=== PATIENT | male | born 1940 | race Caucasian/White ===

== ENCOUNTER 2016-09-17 13:46 | Inpatient (IN) ==
[2016-09-17 17:01] LABS: Basophils % 0.4 %; Eosinophils # 0.3 K/mcL (0.0-0.6); Eosinophils % 3.5 %; Hematocrit 44.1 % (37.5-50.1); Hemoglobin 14.7 g/dL (12.9-16.9); Immature Granulocytes % 0.4 % (0-4); Lymphocytes # 1.8 K/mcL (0.6-4.6); Lymphocytes % 22.5 %; Mean Corpuscular HGB Conc 33.3 g/dL (31.6-35.5); Mean Corpuscular Hemoglobin 31.5 pg (28.0-33.3); Mean Corpuscular Volume 94.6 fL (83.0-100.0); Mean Platelet Volume 10.1 fL (9.4-12.4); Monocytes % 12.5 %; Neutrophils # 4.9 K/mcL (1.6-8.9); Platelet Count 160 K/mcL (140-400); Red Blood Count 4.66 M/mcL (4.19-5.50); Red Cell Distribution Width 13.5 % (11.5-14.5); Segmented Neutrophils % 60.7 %
[2016-09-17 17:11] LABS: Prothrombin Time 44.7 Seconds (9.4-12.1)
[2016-09-17 17:15] LABS: BUN/Creatinine Ratio 16 (6-26); Blood Urea Nitrogen 13 mg/dL (8-26); Calcium 8.8 mg/dL (8.6-10.8); Carbon Dioxide 26 mEq/L (19-29); Chloride 108 mEq/L (98-109); Glucose 92 mg/dL (70-99); Osmolality,Calculated 290 (280-300); Potassium 4.7 mEq/L (3.5-4.5); Sodium 140 mEq/L (136-145); eGFR For African Americans > 60 (> 60); eGFR For Non-African Americans > 60 (> 60)
--- NOTE | 2016-09-17 17:34 | Emergency Department Note ---
Disposition Clinical Impression: DVT, popliteal, acute Qualifiers: Laterality: right Qualified Code(s): I82.431 - Acute embolism and thrombosis of right popliteal vein Disposition: Admitted As Inpatient Condition: Good Referrals: Misha Jensen Jr, MD [Primary Care Provider] - Forms: ED Satisfaction Letter Lower Extremity Injury HPI - General Chief Complaint: ED Extremity Injury, Lower Stated Complaint: Injured right leg Time Seen by Provider: 09/17/16 15:43 Source: patient Limitations: no limitations Nursing Notes Reviewed: Yes Vital Signs Reviewed: Yes - History of Present Illness Pt Subjective Complaint: leg injury Onset (ago): day(s) (5) Mechanism of Injury: blunt Context: direct blow Place: other (hit leg on a wall then flew 9 hour flight from [place]) Improves with: immobilization Worsens with: weight bearing Associated symptoms: Reports: ambulatory - Related Data Home Medications Medication Instructions Recorded Confirmed Albuterol Sulfate [Proventil Hfa] 6.7 gm IH QID PRN 06/28/15 02/20/16 Fluticasone/Salmeterol [Advair 1 each IH BID 06/28/15 02/20/16 500-50 Diskus] Gabapentin [Neurontin] 300 mg PO TID 06/28/15 02/20/16 Montelukast [Singulair] 10 mg PO HS 06/28/15 02/20/16 Previous Rx's Medication Instructions Recorded Diltiazem CD (24hr) [Cardizem CD] 120 mg PO DAILY #30 cap.er.24h 06/29/15 Propafenone [Rhythmol] 150 mg PO Q8HR #90 tablet 08/16/15 OxyCODONE/APAP 5/325 [Percocet 1 each PO Q4H PRN #15 tablet 02/20/16 5/325 MG] Phenazopyridine [Pyridium] 200 mg PO TID PRN #30 tablet 02/20/16 Allergies Allergy/AdvReac Type Severity Reaction Status Date / Time Penicillins [PCN] AdvReac Gastrointestinal Verified 02/20/16 07:14 Upset All systems ED: reviewed and negative except as stated. Constitutional: Denies: fever, chills, weakness Cardiovascular: Denies: chest pain, palpitations, dyspnea on exertion Past Medical History - Past Medical History Source: patient, old records reviewed, nursing notes reviewed Medical history: Reports: arthritis, asthma, atrial fibrillation, CHF, COPD, DVT , GI bleed, myocardial infarction, thyroid disease, TIA Surgical history: Reports: cholecystectomy, other Psychiatric history: Reports: no psych history - Social History Smoking Status: Former smoker Smokeless Tobacco Status: No Alcohol use: Reports: occasionally Drug use: Reports: none Physical Exam - General Limitations: no limitations General appearance: alert - Head Head exam: atraumatic, normocephalic, normal inspection - Eye Eye exam: Present: normal appearance, PERRL, EOMI - Expanded Eye Exam Pupils: Left: reactive - ENT ENT exam: normal exam, normal oropharynx, mucous membranes moist - Expanded ENT Exam External ear exam: Present: normal external inspection Mouth exam: Present: normal external inspection Teeth exam: Present: normal inspection Throat exam: Present: normal inspection - Neck Neck exam: Present: normal inspection, full ROM, trachea midline - Chest Chest inspection: Present: normal inspection, symmetric chest wall rise - Respiratory Respiratory exam: Present: normal lung sounds bilaterally - Cardiovascular Cardiovascular exam: Present: regular rate, normal rhythm, normal heart sounds - Abdominal Exam Abdominal exam: Present: soft, Non-Tender. Absent: tenderness, distention, guarding, rebound, rigidity - Extremities Exam Extremities exam: Present: normal inspection, full ROM. Absent: tenderness, pedal edema - Expanded Upper Extremity Exam Shoulder exam: Present: normal inspection, full ROM Arm exam: Present: normal inspection, full ROM Elbow exam: Present: normal inspection, full ROM Forearm/Wrist exam: Present: normal inspection, full ROM Hand exam: Present: normal inspection, full ROM Vascular exam: Normal: capillary refill, radial pulse - Expanded Lower Extremity Exam Hip/Pelvis exam: Present: normal inspection, full ROM Upper leg exam: Present: normal inspection, full ROM Knee exam: Present: normal inspection, full ROM Lower leg exam: Present: other (right leg 3+ pitting edema, markedly more swollen than the left) Ankle exam: Present: normal inspection, full ROM Foot/toe exam: Present: normal inspection, full ROM Neurovascular/Tendon exam: Absent: motor deficit, sensory deficit, tendon deficit - Back Exam Back exam: Present: normal inspection, full ROM. Absent: tenderness - Neurological Exam Neurological exam: Present: alert, oriented X3 - Expanded Neurological Exam Patient oriented to: Present: person, place, time Coma Scale Eye Opening: Spontaneous Coma Scale Motor Response: Obeys Commands Coma Scale Verbal Response: Oriented Coma Scale Total: 15 - Psychiatric Psychiatric exam: Present: normal affect, normal mood - Skin Skin exam: Present: warm, dry, intact, normal color Course - Consultations Consultation #1: Dr. Darren soria coumadin, start heparin gtt Time: 17:55 Vital Signs Temperature 98.1 F 09/17/16 14:06 Pulse Rate 72 09/17/16 14:06 Respiratory Rate 16 09/17/16 14:06 Blood Pressure 139/73 09/17/16 14:06 O2 Sat by Pulse Oximetry 94 L 09/17/16 14:06 Temperature 98.1 F 09/17/16 14:06 Pulse Rate 72 09/17/16 16:10 Respiratory Rate 16 09/17/16 16:10 Blood Pressure 139/73 09/17/16 16:10 O2 Sat by Pulse Oximetry 94 L 09/17/16 16:10 Oxygen Delivery Oxygen Delivery Room Air Extremity Injury, Lower - Differential Diagnosis Likely: sprain/strain, acute internal derangement of knee, fracture, laceration - Medical Records Medical records reviewed: Yes I reviewed the patient's medical records. - Lab Data Lab results reviewed: Yes I reviewed the patient's lab results. Result diagrams: 09/17/16 16:49 09/17/16 16:49 Lab Results 09/17/16 09/17/16 09/17/16 Range/Units 16:49 16:49 16:49 WBC 8.0 (4.3-11.1) K/mcL RBC 4.66 (4.19-5.50) M/mcL Hgb 14.7 (12.9-16.9) g/dL Hct 44.1 (37.5-50.1) % MCV 94.6 (83.0-100.0) fL MCH 31.5 (28.0-33.3) pg MCHC 33.3 (31.6-35.5) g/dL RDW 13.5 (11.5-14.5) % Plt Count 160 (140-400) K/mcL MPV 10.1 (9.4-12.4) fL Immature Gran % 0.4 (0-4) % Seg Neutrophils % 60.7 % Lymphocytes % 22.5 % Monocytes % 12.5 % Eosinophils % 3.5 % Basophils % 0.4 % Neutrophils # 4.9 (1.6-8.9) K/mcL Lymphocytes # 1.8 (0.6-4.6) K/mcL Monocytes # 1.0 (0.0-1.3) K/mcL Eosinophils # 0.3 (0.0-0.6) K/mcL Basophils # 0.0 (0.0-0.2) K/mcL PT 44.7 H* (9.4-12.1) Seconds INR 4.0 Sodium 140 (136-145) mEq/L Potassium 4.7 H (3.5-4.5) mEq/L Chloride 108 (98-109) mEq/L Carbon Dioxide 26 (19-29) mEq/L BUN 13 (8-26) mg/dL Creatinine 0.82 (0.72-1.25) mg/dL Est GFR ( Amer) > 60 (> 60) Est GFR (Non-Af Amer) > 60 (> 60) BUN/Creatinine Ratio 16 (6-26) Glucose 92 (70-99) mg/dL Calculated Osmolality 290 (280-300) Calcium 8.8 (8.6-10.8) mg/dL - Radiology Data Radiology results reviewed: Yes I reviewed the patient's radiology results. Critical Care Time Critical Care Time: Yes Total Critical Care Time: 35 Attestation: Critical care performed: Time is exclusive of separately billable procedures. Time includes: direct patient care, patient reassessment, coordination of patient care, interpretation of data (laboratory data, radiology data, and respiratory data), review of patient's medical records, medical consultation and documentation of patient care. Procedures included in critical care time: Procedures excluded from critical care time:
--- NOTE | 2016-09-17 17:44 | Venous Imaging Report ---
LE Venous Duplex Patient Name:Keon Persaud Order Number:[id number] Procedure Date:09/17/2016 Date:1940ge:75 yrs Gender:Male Location:[facility] ED Room #: ER22 Supervisor Cell Room:Marita Marvin RDCS Referring MD:Montez Cameron MD Reading MD:Jimi Paredes MD Primary Indications:Swelling of limb Secondary Indications: Risk Factors Yes/No Hx of DVT Yes Anticoagulants Yes Impressions: Acute deep venous thrombosis is present in the right popliteal and gastrocnemius veins. Normal right lower extremity superficial venous exam. Normal contralateral common femoral vein. Recommendations: Test completed on 09/17/2016 at 5:05:00 pm. Critical findings reported to Dr Cameron in person at 5:09:00 pm on 09/17/2016 by Marita Marvin RDCS. Findings Venous Duplex Results: Right: Venous imaging of the lower extremity reveals full patency and normal vessel compressibility of the right distal iliac, right common femoral, right superficial femoral, right posterior tibial, right peroneal, right great saphenous and right lesser saphenous. Doppler signals in the evaluated veins were normal. There is an acute partially occlusive thrombus seen in the right popliteal. It demonstrates a partially compressible vein. Flow was continuous and it did not augment. There is an acute partially occlusive thrombus seen in the right mid gastrocnemius. It demonstrates a partially compressible vein. Flow was continuous and it did not augment. Prior Study: No prior study available for comparison. Lower Extremity Venous Duplex Side Vein Compress Spontaneous Flow Augment Diameter (cm) Depth (cm) Right Distal Iliac Normal Yes Phasic Yes Right Common Femoral Normal Yes Phasic Yes Right Superficial Femoral Normal Yes Phasic Yes Right Popliteal Partial no Continuous no Right Posterior Tibial Normal Yes Phasic Yes Right Peroneal Normal Yes Phasic Yes Right Gastrocnemius Partial no Continuous no Right Great Saphenous Normal Yes Phasic Yes Right Lesser Saphenous Normal Yes Phasic Yes Updated by Jimi Paredes MD on 09/17/2016 5:33:43 PM electronically signed on 09/17/2016 5:39:48 PM with status of Final
[2016-09-17] MEDS ORDERED: *HR* Heparin 5,000 UNIT/ML VIAL IVP PRN ×2 (17:56)
[2016-09-17] MEDS ORDERED: *HR* Heparin 5,000 UNIT/ML VIAL IVP ONE (17:56)
[2016-09-17] MEDS ORDERED: *HR* OxyCODONE/APAP 5/325 TABLET PO ONE (17:56)
[2016-09-17] MEDS: Heparin 25,000 UNIT/500 ML D5W 25,000 UNIT/500 ML MLS IVC SCH (18:44)
--- NOTE | 2016-09-17 19:56 | Internal Med History&Physical ---
Date of Encounter: 09/17/16 Time of Encounter: 19:51 Assessment and Plan (1) DVT, popliteal, acute Current visit: Yes Status: Acute Patient with history of DVT, admitted due to an acute deep venous thrombosis on his right lower extremity. The patient last on chronic anticoagulation with Coumadin and INR 4.0. At this point, we will continue with heparin drip and monitor his coagulation profile accordingly. Additionally, would monitor his hemoglobin and platelet count. GI prophylaxis. The patient does not need oxygen supplementation at this point, we will continue monitoring his oxygen saturation. Evaluation by hematology has been requested by the emergency department team, we will follow recommendations. She is at high risk for developing complications such as pulmonary embolism. Additionally, due to anticoagulation with heparin drip needs monitoring of his coagulation profile. The plan of care was discussed in detail with the patient and his , they expressed understanding. Qualifiers: Laterality: right Qualified Code(s): I82.431 - Acute embolism and thrombosis of right popliteal vein (2) COPD (chronic obstructive pulmonary disease) Current visit: Yes Status: Acute Not in exacerbation. Qualifiers: COPD type: unspecified COPD Qualified Code(s): J44.9 - Chronic obstructive pulmonary disease, unspecified (3) Atrial fibrillation Current visit: No Status: Acute Ventricular rate under control. Continue with rate control medications. Anticoagulation with heparin drip at this point. Qualifiers: Atrial fibrillation type: paroxysmal Qualified Code(s): I48.0 - Paroxysmal atrial fibrillation (4) CHF (congestive heart failure) Current visit: Yes Status: Acute Qualifiers: Congestive heart failure type: unspecified congestive heart failure type Congestive heart failure chronicity: chronic Qualified Code(s): I50.9 - Heart failure, unspecified Internal Medicine - H&P: HPI Chief complaint: right leg swelling Admitted From: Emergency Dept Plans for Post Hospital Care: Home History of present illness: Mr. 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 The patient presented to our emergency department complaining of progressive right lower extremity swelling and tenderness which is started 5 days ago. The patient states that he was in [place] on vacation and had an injury in his right lower extremity. He flew back to [place] and his right lower extremity had progressively swollen and was tender with significant pain upon palpation. He denies fever, shortness of breath, cough, hemoptysis, melena. The patient presented to our emergency department and upon presentation his blood pressure was 139/73, heart rate was 72/m, but the other rate was 16 per minute, oxygen saturation was 96%. He underwent a duplex of the right lower extremity which revealed a right popliteal aggressive thrombosis along with a right thrombosed. Initial blood work was significant for a hemoglobin of 14.7, platelet count was 160,000. Sodium was 140, potassium 4.7, BUN 13, creatinine 0.82, glucose 92. The emergency department team discussed the case with our shipwright, who recommended initiation of heparin drip. The patient has been admitted for further management and workup. Past Med Surg Social Fam HX - Past Medical History Medical history: arthritis, asthma, atrial fibrillation, CHF, COPD, DVT, GI bleed, myocardial infarction, thyroid disease, TIA Psychiatric history: no psych history - Past Surgical History Surgical History: cholecystectomy, other - Social History Smoking Status: Former smoker Smokeless Tobacco Status: No Alcohol use: occasionally Drug use: none - Family History Mother Adopted: No Hx Family Cancer: No (PANCREATIC) Father Adopted: No Hx Family Cancer: Yes (JAW, COLON) Internal Medicine - H&P: Meds Albuterol Sulfate [Proventil Hfa] 2 puff IH Q4-6H PRN 06/28/15 [History] Fluticasone/Salmeterol [Advair 500-50 Diskus] 1 each IH BID 06/28/15 [History] Gabapentin [Neurontin] 300 mg PO TID 06/28/15 [History] Montelukast [Singulair] 10 mg PO HS 06/28/15 [History] Diltiazem CD (24hr) [Cardizem CD] 120 mg PO DAILY #30 cap.er.24h 06/29/15 [Rx] Propafenone [Rhythmol] 150 mg PO Q8HR #90 tablet 08/16/15 [Rx] Cholestyramine 4 gm PO DAILY 09/17/16 [History] Fluticasone Propionate Nasal [Flonase] 50 mcg NS BID 09/17/16 [History] Warfarin [Coumadin] 5 mg PO TUFR 09/17/16 [History] Warfarin [Coumadin] 7.5 mg PO SUMOWETHSA 09/17/16 [History] Allergies Penicillins [PCN] Adverse Reaction (Verified 02/20/16 07:14) Gastrointestinal Upset All Systems PM: A 10-system review of systems was performed and is negative for pertinent findings except as documented above in the HPI. - Constitutional Constitutional: no chills, no fever(s), no night sweats - EENT Eyes: no change in vision, no discharge, no pain, no photophobia Ears: no ear discharge, no ear pain, no tinnitus Nose, mouth and throat: no dysphagia, no nasal discharge, no neck pain, no sore throat - Cardiovascular Cardiovascular ROS IM: no chest pain, no diaphoresis, no dyspnea, no lightheadedness, no palpitations, no syncope - Respiratory Respiratory: no cough, no dyspnea, no wheezing, no excessive phlegm production - Gastrointestinal Gastrointestinal: no abdominal pain, no diarrhea, no hematemesis, no hematochezia, no melena, no nausea, no vomiting - Musculoskeletal Musculoskeletal ROS IM: as per HPI, no numbness, no tingling - Integumentary Integumentary IM: as per HPI, erythema, no rash, no unusual bruising - Neurological Neurological ROS: no confusion, no convulsions, no focal weakness, no numbness, no tingling, no tremor(s) - Hematologic/Lymphatic Hematologic/Lymphatic: no easy bruising - Constitutional Vitals: Temp Pulse Resp BP Pulse Ox 98.1 F 72 14 118/68 97 09/17/16 14:06 09/17/16 18:30 09/17/16 18:30 09/17/16 18:30 09/17/16 18:30 General appearance: Present: cooperative, A&O X 3, pleasant, no acute distress - Head Head exam: Present: atraumatic, normocephalic - Eye Eye exam: Present: PERRL, conjuntiva pink, sclera anicteric Pupils: Present: PERRL - Neck Neck exam general surgery: Present: supple, trachea midline. Absent: lymphadenopathy - Respiratory Respiratory exam: Present: CTAB. Absent: accessory muscle use, rales, rhonchi, wheezes - Cardiovascular Cardiovascular exam: Present: RRR, +S1, +S2. Absent: diastolic murmur, gallop, rubs, systolic murmur - GI/Abdominal GI/Abdominal exam: Present: normal bowel sounds, soft, no peritoneal signs. Absent: distended, tenderness - Extremities Exam Extremities exam: Present: normal capillary refill, tenderness, warm, radial pulses palpable and symetrical. Absent: calf tenderness, cyanotic, pedal edema Additional comments: right leg 3+ pitting edema, markedly more swollen than the left, preserved distal pulses on both lower extremities. - Neurological Exam Neurological exam: Present: CN II-XII intact, oriented X3, no focal deficits. Absent: pronater drift, facial droop, speech deficit - Skin Skin exam: Present: dry, intact Internal Med - H&P Results - Labs CBC & Chem 7: 09/17/16 16:49 09/17/16 16:49
[2016-09-17] MEDS ORDERED: Naloxone 0.4 MG/ML INJ IVP PRN (20:03)
[2016-09-17] MEDS ORDERED: Ondansetron ODT 4 MG TAB.RAPDIS SL PRN (20:03)
[2016-09-17] MEDS ORDERED: Acetaminophen 325 MG TABLET PO PRN (20:03)
[2016-09-17 20:39] LABS: Activated Partial Thrombo Time 42.1 Seconds (26.0-36.0)
[2016-09-17] MEDS: Budesonide/Formoterol 160/4.5 MDI IH SCH (20:53)
[2016-09-17] MEDS: Gabapentin 300 MG CAPSULE PO SCH (23:24)
[2016-09-17] MEDS: Fluticasone Propionate Nasal 50 MCG/SPRAY BOTTLE NS SCH (23:24)
[2016-09-18 03:21] LABS: Basophils % 0.6 %; Eosinophils # 0.4 K/mcL (0.0-0.6); Eosinophils % 5.4 %; Hematocrit 41.9 % (37.5-50.1); Hemoglobin 13.9 g/dL (12.9-16.9); Immature Granulocytes % 0.3 % (0-4); Immature Platelets 5.7 % (1.1-6.1); Lymphocytes # 2.2 K/mcL (0.6-4.6); Lymphocytes % 30.6 %; Mean Corpuscular HGB Conc 33.2 g/dL (31.6-35.5); Mean Corpuscular Hemoglobin 31.6 pg (28.0-33.3); Mean Corpuscular Volume 95.2 fL (83.0-100.0); Mean Platelet Volume 10.6 fL (9.4-12.4); Monocytes # 0.9 K/mcL (0.0-1.3); Monocytes % 13.2 %; Neutrophils # 3.5 K/mcL (1.6-8.9); Platelet Count 159 K/mcL (140-400); Red Cell Distribution Width 13.4 % (11.5-14.5); Segmented Neutrophils % 49.9 %
[2016-09-18 03:38] LABS: Alanine Aminotransferase 13 Units/L (0-55); Albumin/Globulin Ratio 0.8 (1.1-2.2); Alkaline Phosphatase 68 Units/L (38-126); Aspartate Amino Transferase 18 Units/L (5-34); BUN/Creatinine Ratio 17 (6-26); Blood Urea Nitrogen 14 mg/dL (8-26); Calcium 8.9 mg/dL (8.6-10.8); Carbon Dioxide 29 mEq/L (19-29); Chloride 105 mEq/L (98-109); Chol/HDL Ratio 3.5 (0-4.9); Cholesterol 120 mg/dL (< 200); Globulin 3.6 g/dL (2.4-3.5); Glucose 89 mg/dL (70-99); HDL Cholesterol 34 mg/dL (40-59); LDL Cholesterol,Calculated 76 mg/dL (0-99); Osmolality,Calculated 288 (280-300); Potassium 4.1 mEq/L (3.5-4.5); Sodium 139 mEq/L (136-145); Total Protein 6.6 g/dL (6.0-8.3); Triglycerides 52 mg/dL (< 150); eGFR For African Americans > 60 (> 60); eGFR For Non-African Americans > 60 (> 60)
[2016-09-18 03:53] LABS: INR 4.7; Prothrombin Time 52.9 Seconds (9.4-12.1)
[2016-09-18 03:54] LABS: Activated Partial Thrombo Time > 360.0 Seconds (26.0-36.0)
[2016-09-18 04:09] LABS: Heparin anti-factor XA UFH 0.78 IU/mL (0.30-0.70)
[2016-09-18] MEDS: Budesonide/Formoterol 160/4.5 MDI IH SCH ×2 (08:04→22:10)
[2016-09-18] MEDS: Diltiazem CD (24hr) 120 MG CAPSULE PO SCH (10:03)
[2016-09-18] MEDS: Cholestyramine 4 GM POWD.PACK PO SCH (10:03)
[2016-09-18] MEDS: Gabapentin 300 MG CAPSULE PO SCH ×3 (10:03→22:50)
[2016-09-18] MEDS: Fluticasone Propionate Nasal 50 MCG/SPRAY BOTTLE NS SCH ×2 (10:03→22:50)
--- NOTE | 2016-09-18 10:12 | Internal Med Progress Note ---
<Ankush Casey - Last Filed: 09/18/16 17:11> Date of Encounter: 09/18/16 Time of Encounter: 08:15 - Assessment and plan (1) DVT, popliteal, acute Current Visit: Yes Status: Acute Assessment and plan: - Likely provoked DVT from trauma and/or long-time immobility (on flight) with the history of DVT and A-fib on chronic Coumadin. - LE venous Duplex found acute DVT in the right popliteal and gastrocnemius veins. - Continue heparin drip. - Clinically improves with no reported sign of bleeding. - Appreciate hematology recommendation for further management. - Closely monitor. Qualifiers: Laterality: right Qualified Code(s): I82.431 - Acute embolism and thrombosis of right popliteal vein (2) Hematoma of right lower extremity Current Visit: Yes Status: Acute Assessment and plan: - Lateral hematoma of right lower leg noted on physical exam. - CT LE found hyperdense lesion/collection within the lateral SQ tissues, consistent with hematoma, with size of 7.8 x 4.0 x 2.2 cm. - Case was discussed with radiologist Dr. Dunaway. Given the hyperdensity and the trauma happened 7 days ago, the chance it's still bleeding is low. - Will mauricio the hematoma and closely monitor for any increase in size. Also monitor H&H. Qualifiers: Encounter type: subsequent encounter Qualified Code(s): S80.11XD - Contusion of right lower leg, subsequent encounter (3) Chronic anticoagulation Current Visit: Yes Status: Chronic Assessment and plan: - Indicated for history of DVT and A-fib. - History of GI bleeding while on Xarelto in the past. - Was on Coumadin prior to admission with supratherapeutic INR at 4.0. - Appreciate hematology input regarding chronic anticoagulation choice in this case. (4) Atrial fibrillation Current Visit: No Status: Acute Assessment and plan: - Currently rate-controlled with Cardizem. - Currently on heparin drip as anticoagulation. Qualifiers: Atrial fibrillation type: paroxysmal Qualified Code(s): I48.0 - Paroxysmal atrial fibrillation (5) Supratherapeutic INR Current Visit: Yes Status: Acute Assessment and plan: - INR 4.0 on admission. - Patient reports no change on taking Coumadin or diet recently. - Continue to monitor. (6) COPD (chronic obstructive pulmonary disease) Current Visit: Yes Status: Acute Assessment and plan: - Continue Symbicort and prn albuterol. Qualifiers: COPD type: unspecified COPD Qualified Code(s): J44.9 - Chronic obstructive pulmonary disease, unspecified - Subjective Interval history: Patient was seen and examined this morning. Patient reports swelling and redness improves since being on heparin drip. Patient denies fever, chills, chest pain, shortness of breath, cough, nausea, vomiting, diarrhea. Patient states he bumped his right lower leg on concrete while playing [employer] at [employer] on 09/12. Patient reports taking his Coumadin regularly and the INR checked by home monitor usually ran between 2 and 3. Patient denies significant change on diet recently. - Constitutional Vitals: Temp Pulse Resp BP Pulse Ox 98.1 F 56 16 126/76 97 09/18/16 07:06 09/18/16 07:06 09/18/16 08:04 09/18/16 07:06 09/18/16 08:04 General appearance: Present: cooperative, A&O X 3, pleasant, no acute distress - Head Head exam: Present: atraumatic, normocephalic - Eye Eye exam: Present: PERRL, conjuntiva pink, sclera anicteric - Neck Neck exam general surgery: Present: supple, trachea midline. Absent: lymphadenopathy - Respiratory Respiratory exam: Present: rales (Mild crackles at left base.). Absent: accessory muscle use, rhonchi, wheezes - Cardiovascular Cardiovascular exam: Present: RRR, +S1, +S2. Absent: diastolic murmur, gallop, rubs, systolic murmur - GI/Abdominal GI/Abdominal exam: Present: normal bowel sounds, soft, no peritoneal signs. Absent: distended, tenderness - Extremities Exam Extremities exam: Present: warm, radial pulses palpable and symetrical. Absent : cyanotic Additional comments: Right lower leg swelling and tenderness to palpation, per patient is better compared to before. A hematoma at lateral side of mid lower leg is also noted. Right dorsalis pedis pulse palpable. Bilateral LE skin change like venous insufficiency. - Neurological Exam Neurological exam: Present: CN II-XII intact, oriented X3, no focal deficits. Absent: pronater drift, facial droop, speech deficit - Skin Skin exam: Present: dry, intact Internal Medicine: Result - Labs CBC & Chem 7: 09/18/16 02:04 09/18/16 02:04 Labs: Short CBC 09/18/16 Range/Units 02:04 WBC 7.0 (4.3-11.1) K/mcL Hgb 13.9 (12.9-16.9) g/dL Hct 41.9 (37.5-50.1) % Plt Count 159 (140-400) K/mcL Neutrophils # 3.5 (1.6-8.9) K/mcL BMP 09/18/16 02:04 Sodium 139 Potassium 4.1 Chloride 105 Carbon Dioxide 29 BUN 14 Creatinine 0.83 Glucose 89 Calcium 8.9 Liver Function 09/18/16 Range/Units 02:04 Total Bilirubin 1.0 (0.2-1.2) mg/dL AST 18 (5-34) Units/L ALT 13 (0-55) Units/L Alkaline Phosphatase 68 (38-126) Units/L Albumin 3.0 L (3.5-5.0) g/dL - ABG Interpretation ABG results: PT/INR, D-dimer PT 52.9 Seconds (9.4-12.1) H* 09/18/16 02:04 Consult Discharge Plan - Plan Referrals: Misha Jensen Jr, MD [Primary Care Provider] - 09/27/16 1:30 pm <Shellie Herrera E - Last Filed: 09/18/16 17:34> - Constitutional Vitals: Temp Pulse Resp BP Pulse Ox 98.1 F 63 16 112/62 96 09/18/16 15:04 09/18/16 15:04 09/18/16 15:04 09/18/16 15:04 09/18/16 15:04 Internal Medicine: Result - Labs CBC & Chem 7: 09/18/16 02:04 09/18/16 02:04 Labs: Short CBC 09/18/16 Range/Units 02:04 WBC 7.0 (4.3-11.1) K/mcL Hgb 13.9 (12.9-16.9) g/dL Hct 41.9 (37.5-50.1) % Plt Count 159 (140-400) K/mcL Neutrophils # 3.5 (1.6-8.9) K/mcL BMP 09/18/16 02:04 Sodium 139 Potassium 4.1 Chloride 105 Carbon Dioxide 29 BUN 14 Creatinine 0.83 Glucose 89 Calcium 8.9 Liver Function 09/18/16 Range/Units 02:04 Total Bilirubin 1.0 (0.2-1.2) mg/dL AST 18 (5-34) Units/L ALT 13 (0-55) Units/L Alkaline Phosphatase 68 (38-126) Units/L Albumin 3.0 L (3.5-5.0) g/dL - ABG Interpretation ABG results: PT/INR, D-dimer PT 52.9 Seconds (9.4-12.1) H* 09/18/16 02:04 - Impressions Impressions Lower Extremity CT 09/18/16 11:30 IMPRESSION: Hyperdense lesion/collection within the lateral subcutaneous tissues, most consistent with hematoma given the history. This measures approximately 7.8 x 4.0 x 2.2 cm. Diffuse nonspecific subcutaneous edema. No acute osseous abnormality. D/ / 09/18/2016 12:06:23 Otoniel Dunaway MD / francois Interpreting Provider: Otoniel Dunaway MD - Attending Attestation I examined this patient and reviewed laboratory, imaging and all diagnostic data. My medical decision-making was reviewed with Dr Casey - Resident Physician. I agree with the documented findings, disposition and treatment plan as described above.
[2016-09-18 10:47] LABS: Activated Partial Thrombo Time 129.6 Seconds (26.0-36.0)
[2016-09-18 10:53] LABS: Heparin anti-factor XA UFH 0.41 IU/mL (0.30-0.70)
[2016-09-18] MEDS: Heparin 25,000 UNIT/500 ML D5W 25,000 UNIT/500 ML MLS IVC SCH (15:01)
[2016-09-18] MEDS: *HR* HYDROcodone/Acet 5/325 mg TABLET PO PRN (22:50)
[2016-09-19 05:15] LABS: INR 2.6; Prothrombin Time 28.9 Seconds (9.4-12.1)
[2016-09-19 05:18] LABS: Activated Partial Thrombo Time 69.9 Seconds (26.0-36.0)
[2016-09-19 05:23] LABS: Basophils % 0.4 %; Eosinophils # 0.3 K/mcL (0.0-0.6); Eosinophils % 3.5 %; Hemoglobin 14.2 g/dL (12.9-16.9); Immature Granulocytes % 0.4 % (0-4); Lymphocytes # 1.8 K/mcL (0.6-4.6); Lymphocytes % 22.8 %; Mean Corpuscular Hemoglobin 31.1 pg (28.0-33.3); Mean Corpuscular Volume 94.1 fL (83.0-100.0); Mean Platelet Volume 10.5 fL (9.4-12.4); Monocytes % 12.3 %; Neutrophils # 4.7 K/mcL (1.6-8.9); Platelet Count 160 K/mcL (140-400); Red Blood Count 4.57 M/mcL (4.19-5.50); Red Cell Distribution Width 13.2 % (11.5-14.5); Segmented Neutrophils % 60.6 %
[2016-09-19 05:52] LABS: BUN/Creatinine Ratio 16 (6-26); Blood Urea Nitrogen 12 mg/dL (8-26); Calcium 8.5 mg/dL (8.6-10.8); Carbon Dioxide 26 mEq/L (19-29); Chloride 106 mEq/L (98-109); Glucose 92 mg/dL (70-99); Osmolality,Calculated 289 (280-300); Sodium 140 mEq/L (136-145); eGFR For African Americans > 60 (> 60); eGFR For Non-African Americans > 60 (> 60)
[2016-09-19] MEDS: Gabapentin 300 MG CAPSULE PO SCH ×3 (07:53→20:14)
[2016-09-19] MEDS: Diltiazem CD (24hr) 120 MG CAPSULE PO SCH (07:53)
[2016-09-19] MEDS: Cholestyramine 4 GM POWD.PACK PO SCH (07:53)
[2016-09-19] MEDS: Fluticasone Propionate Nasal 50 MCG/SPRAY BOTTLE NS SCH ×2 (07:54→20:14)
[2016-09-19] MEDS: Budesonide/Formoterol 160/4.5 MDI IH SCH ×2 (08:01→20:05)
--- NOTE | 2016-09-19 10:06 | Internal Med Progress Note ---
<Ankush Casey - Last Filed: 09/19/16 14:07> Date of Encounter: 09/19/16 Time of Encounter: 09:00 - Assessment and plan (1) DVT, popliteal, acute Current Visit: Yes Status: Acute Assessment and plan: - Likely provoked DVT from trauma and/or long-time immobility (on flight) with the history of DVT and A-fib on chronic Coumadin. - LE venous Duplex found acute DVT in the right popliteal and gastrocnemius veins. - Continue heparin drip. - Clinically improves with no reported sign of bleeding. - Appreciate hematology recommendation for further management. - Closely monitor. Qualifiers: Laterality: right Qualified Code(s): I82.431 - Acute embolism and thrombosis of right popliteal vein (2) Hematoma of right lower extremity Current Visit: Yes Status: Acute Assessment and plan: - Lateral hematoma of right lower leg noted on physical exam. - CT LE found hyperdense lesion/collection within the lateral SQ tissues, consistent with hematoma, with size of 7.8 x 4.0 x 2.2 cm. - Case was discussed with radiologist Dr. Dunaway. Given the hyperdensity and the trauma happened 7 days ago, the chance it's still bleeding is low. - Closely monitor for any increase in size along with H&H. Qualifiers: Encounter type: subsequent encounter Qualified Code(s): S80.11XD - Contusion of right lower leg, subsequent encounter (3) Chronic anticoagulation Current Visit: Yes Status: Chronic Assessment and plan: - Indicated for history of DVT and A-fib. - History of GI bleeding while on Xarelto in the past. - Was on Coumadin prior to admission with supratherapeutic INR at 4.0. - Appreciate hematology input regarding chronic anticoagulation choice in this case. (4) Atrial fibrillation Current Visit: No Status: Acute Assessment and plan: - Currently rate-controlled with Cardizem. - Currently on heparin drip as anticoagulation. Qualifiers: Atrial fibrillation type: paroxysmal Qualified Code(s): I48.0 - Paroxysmal atrial fibrillation (5) Supratherapeutic INR Current Visit: Yes Status: Acute Assessment and plan: - INR 4.0 on admission. - Patient reports no change on taking Coumadin or diet recently. - INR 2.6 today. - Continue to monitor. (6) COPD (chronic obstructive pulmonary disease) Current Visit: Yes Status: Acute Assessment and plan: - Continue Symbicort and prn albuterol. Qualifiers: COPD type: unspecified COPD Qualified Code(s): J44.9 - Chronic obstructive pulmonary disease, unspecified - Subjective Interval history: No significant event noted overnight. Patient was seen and examined this morning. Patient reports swelling and redness may be slightly better than yesterday. Patient denies fever, chills, chest pain, shortness of breath, cough , nausea, vomiting, diarrhea, hematuria, hematochezia, melena or other sign of bleeding. - Constitutional Vitals: Temp Pulse Resp BP Pulse Ox 97.9 F 62 14 111/58 95 09/19/16 06:48 09/19/16 06:48 09/19/16 06:48 09/19/16 06:48 09/19/16 06:48 General appearance: Present: cooperative, A&O X 3, pleasant, no acute distress - Head Head exam: Present: atraumatic, normocephalic - Eye Eye exam: Present: PERRL, conjuntiva pink, sclera anicteric Pupils: Present: PERRL - Neck Neck exam general surgery: Present: supple, trachea midline. Absent: lymphadenopathy - Respiratory Respiratory exam: Present: CTAB. Absent: accessory muscle use, rales, rhonchi, wheezes - Cardiovascular Cardiovascular exam: Present: RRR, +S1, +S2. Absent: diastolic murmur, gallop, rubs, systolic murmur - GI/Abdominal GI/Abdominal exam: Present: normal bowel sounds, soft, no peritoneal signs. Absent: distended, tenderness - Extremities Exam Extremities exam: Present: warm, radial pulses palpable and symetrical. Absent : calf tenderness, cyanotic Additional comments: Right lower leg swelling with some tenderness to palpation, per patient is better compared to before. A hematoma at lateral side of mid lower leg is also noted and feel the size is about the same as yesterday Right dorsalis pedis pulse palpable. Bilateral LE skin change with appearing of venous insufficiency. - Neurological Exam Neurological exam: Present: CN II-XII intact, oriented X3, no focal deficits. Absent: pronater drift, facial droop, speech deficit - Skin Skin exam: Present: dry, intact Internal Medicine: Result - Labs CBC & Chem 7: 09/19/16 04:21 09/19/16 04:21 Labs: Short CBC 09/19/16 Range/Units 04:21 WBC 7.8 (4.3-11.1) K/mcL Hgb 14.2 (12.9-16.9) g/dL Hct 43.0 (37.5-50.1) % Plt Count 160 (140-400) K/mcL Neutrophils # 4.7 (1.6-8.9) K/mcL BMP 09/19/16 04:21 Sodium 140 Potassium 4.0 Chloride 106 Carbon Dioxide 26 BUN 12 Creatinine 0.77 Glucose 92 Calcium 8.5 L - ABG Interpretation ABG results: PT/INR, D-dimer PT 28.9 Seconds (9.4-12.1) H 09/19/16 04:21 - Impressions Impressions Lower Extremity CT 09/18/16 11:30 IMPRESSION: Hyperdense lesion/collection within the lateral subcutaneous tissues, most consistent with hematoma given the history. This measures approximately 7.8 x 4.0 x 2.2 cm. Diffuse nonspecific subcutaneous edema. No acute osseous abnormality. D/ / 09/18/2016 12:06:23 Otoniel Dunaway MD / [facility] Interpreting Provider: Otoniel Dunaway MD Consult Discharge Plan - Plan Referrals: Misha Jensen Jr, MD [Primary Care Provider] - 09/27/16 1:30 pm <Shellie Herrera E - Last Filed: 09/19/16 18:50> - Constitutional Vitals: Temp Pulse Resp BP Pulse Ox 98.1 F 55 16 104/55 94 L 09/19/16 14:44 09/19/16 14:44 09/19/16 14:44 09/19/16 14:44 09/19/16 14:44 Internal Medicine: Result - Labs CBC & Chem 7: 09/19/16 04:21 09/19/16 04:21 Labs: Short CBC 09/19/16 Range/Units 04:21 WBC 7.8 (4.3-11.1) K/mcL Hgb 14.2 (12.9-16.9) g/dL Hct 43.0 (37.5-50.1) % Plt Count 160 (140-400) K/mcL Neutrophils # 4.7 (1.6-8.9) K/mcL BMP 09/19/16 04:21 Sodium 140 Potassium 4.0 Chloride 106 Carbon Dioxide 26 BUN 12 Creatinine 0.77 Glucose 92 Calcium 8.5 L - ABG Interpretation ABG results: PT/INR, D-dimer PT 28.9 Seconds (9.4-12.1) H 09/19/16 04:21 - Impressions Impressions Lower Extremity CT 09/18/16 11:30 IMPRESSION: Hyperdense lesion/collection within the lateral subcutaneous tissues, most consistent with hematoma given the history. This measures approximately 7.8 x 4.0 x 2.2 cm. Diffuse nonspecific subcutaneous edema. No acute osseous abnormality. D/ / 09/18/2016 12:06:23 Otoniel Dunaway MD / [facility] Interpreting Provider: Otoniel Dunaway MD - Attending Attestation I examined this patient and reviewed laboratory, imaging and all diagnostic data. My medical decision-making was reviewed with Dr Casey - Resident Physician. I agree with the documented findings, disposition and treatment plan as described above.
[2016-09-19] MEDS: *HR* HYDROcodone/Acet 5/325 mg TABLET PO PRN (11:51)
--- NOTE | 2016-09-19 12:21 | Oncology Inp Consult Note ---
<Matty Carter Jr - Last Filed: 09/19/16 14:45> Date of Encounter: 09/19/16 Time of Encounter: 14:40 Assessment and Plan (1) DVT, popliteal, acute Status: Acute Assessment and plan: This is a 75 year old patient with history of previous DVT. He reported an injury to right lower extremity while on vacation in [place]. Patient admitted through ER on 09/17/16. Patient on coumadin after being taken off xarelto for GI bleed in 2014. INR found to be at 4.0 on admission. Since patient has a secondary DVT despite coumadin and INR 4.0, we will switch to different anticoagulation regimen. Dr Blum will assess patient, review history and provide final recommendation today. Keep om heparin for now. Qualifiers: Laterality: right Qualified Code(s): I82.431 - Acute embolism and thrombosis of right popliteal vein (2) Supratherapeutic INR Status: Acute (3) Paroxysmal a-fib Status: Acute - Data of Consult Patient: new to practice Consult date: 09/19/16 Requesting Physician: Shellie Herrera Primary Care Provider: Misha Jensen Jr, MD - Consult Narrative Reason for consult: Acute DVT, failed coumadin History of present illness: Mr. Persaud is a 75 year old male with previosu history of DVT on chronic coumadin. He was taken off xarelto due to previous GI bleed. [place] presented to [place] ER with right lower leg swelling and pain over a 5 day period. Patient was recently on vacation and reports trauma to RLE. Denied chest pain, dyspnea. Doppler of rLE in ER showed acute DVT of right popliteal vein. Supratherapeutic INR on admission at 4.0 Hematology consulted f or anticoagulation recommendation. Currently on heparin drip. Past Med Surg Social Fam HX - Past Medical History Medical history: arthritis, asthma, atrial fibrillation, CHF, COPD, DVT, GI bleed, myocardial infarction, thyroid disease, TIA Psychiatric history: no psych history - Past Surgical History Surgical History: cholecystectomy, other - Social History Smoking Status: Former smoker Smokeless Tobacco Status: No Alcohol use: occasionally Drug use: none - Family History Mother Adopted: No Living Status: Age at : 84 Hx Family Cardiac Disorders: Yes (pancreatic) Hx Family Cancer: No (PANCREATIC) Father Adopted: No Age at : 79 Hx Family Cancer: Yes (jaw and colon) Medications and Allergies Albuterol Sulfate [Proventil Hfa] 2 puff IH Q4-6H PRN 06/28/15 [History] Fluticasone/Salmeterol [Advair 500-50 Diskus] 1 each IH BID 06/28/15 [History] Gabapentin [Neurontin] 300 mg PO TID 06/28/15 [History] Montelukast [Singulair] 10 mg PO HS 06/28/15 [History] Diltiazem CD (24hr) [Cardizem CD] 120 mg PO DAILY #30 cap.er.24h 06/29/15 [Rx] Propafenone [Rhythmol] 150 mg PO Q8HR #90 tablet 08/16/15 [Rx] Cholestyramine 4 gm PO DAILY 09/17/16 [History] Fluticasone Propionate Nasal [Flonase] 50 mcg NS BID 09/17/16 [History] Warfarin [Coumadin] 5 mg PO TUFR 09/17/16 [History] Warfarin [Coumadin] 7.5 mg PO SUMOWETHSA 09/17/16 [History] Allergies Penicillins [PCN] Adverse Reaction (Verified 02/20/16 07:14) Gastrointestinal Upset Musculoskeletal: Present: muscle cramps, myalgias Oncology - Exam - Constitutional Vitals: Temp Pulse Resp BP Pulse Ox 97.6 F 60 16 114/69 95 09/19/16 10:47 09/19/16 10:47 09/19/16 10:47 09/19/16 10:47 09/19/16 10:47 General appearance: no acute distress - Head Head exam: Present: atraumatic, normal inspection - Eye Eye exam: Present: PERRL - Neck Neck exam: Present: full ROM - Respiratory Respiratory exam: Present: CTAB - Cardiovascular Cardiovascular exam: Present: RRR, +S1, +S2 - GI/Abdominal GI/Abdominal exam: Present: normal bowel sounds, soft - Extremities Exam Extremities exam: Present: full ROM - Neurological Exam Neurological exam: Present: alert, oriented X3, no focal deficits - Psychiatric Psychiatric exam: Present: normal affect - Skin Skin exam: Present: dry, intact, warm Oncology - Results - Labs Labs: Short CBC 09/19/16 Range/Units 04:21 WBC 7.8 (4.3-11.1) K/mcL Hgb 14.2 (12.9-16.9) g/dL Hct 43.0 (37.5-50.1) % Plt Count 160 (140-400) K/mcL Neutrophils # 4.7 (1.6-8.9) K/mcL BMP 09/19/16 04:21 Sodium 140 Potassium 4.0 Chloride 106 Carbon Dioxide 26 BUN 12 Creatinine 0.77 Glucose 92 Calcium 8.5 L Consult Discharge Plan - Plan Referrals: Misha Jensen Jr, MD [Primary Care Provider] - 09/27/16 1:30 pm <Harrison Blum - Last Filed: 09/19/16 17:19> Date of Encounter: 09/19/16 - Data of Consult Requesting Physician: Shellie Herrera Primary Care Provider: Misha Jensen Jr, MD - Consult Narrative History of present illness: Mr. Persaud is a 75 year old male with medical history significant for benign prostatic hypertrophy, proximal atrial fibrillation, COPD, history of deep venous thrombosis, patient was previously on Xarelto for atrial fibrillation and was held due to GI bleeding he is currently maintained on Coumadin, has presented with right lower extremity swelling and Doppler studies showed acute partially occlusive thrombus in the right popliteal, acute partially occlusive thrombus in the right mid gastrocnemius. 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 Patient also had a supratherapeutic INR at hospitalization due to swelling and injury in the right lower extremity a CT scan was obtained that shows a hyperdense collection at the level from mid fibula measuring 7.8 x 4 x 2.2 cm consistent with the hematoma. Patient reports that the trauma was a week or so ago. Patient is currently on heparin drip. On examination patient appears comfortable not in acute distress Chest bilateral air entry clear HEENT atraumatic normocephalic no scleral icterus or pallor Abdomen is soft and nontender no masses palpable Extremities bilateral lower extremity chronic changes right lower extremity lateral aspect swelling consistent with hematoma. Neurologic alert awake oriented 3 no gross deficits. Recommendations DVT, right lower extremity acute DVT currently on heparin INR fluctuation with Coumadin possibly contributed to bleeding with trauma as well as acute DVT in the right lower extremity. Patient needs to be on full dose anti-coagulation with acute popliteal right lower extremity deep venous thrombosis. We recommended going back to Xarelto 20 mg daily with close monitoring of lab works, as it would avoid fluctuation in anticoagulation and therefore lesser degree of serious bleeding associated. He i sagreeable to restraing xarelto 20mg daily and following up in hematology clinic. I agree with Nirav Carter CNP's history/physical ROS and a/p and have reviewed them personally. Oncology - Exam - Constitutional Vitals: Temp Pulse Resp BP Pulse Ox 98.1 F 55 16 104/55 94 L 09/19/16 14:44 09/19/16 14:44 09/19/16 14:44 09/19/16 14:44 09/19/16 14:44 Oncology - Results - Labs Labs: Short CBC 09/19/16 Range/Units 04:21 WBC 7.8 (4.3-11.1) K/mcL Hgb 14.2 (12.9-16.9) g/dL Hct 43.0 (37.5-50.1) % Plt Count 160 (140-400) K/mcL Neutrophils # 4.7 (1.6-8.9) K/mcL BMP 09/19/16 04:21 Sodium 140 Potassium 4.0 Chloride 106 Carbon Dioxide 26 BUN 12 Creatinine 0.77 Glucose 92 Calcium 8.5 L
[2016-09-19] MEDS: Heparin 25,000 UNIT/500 ML D5W 25,000 UNIT/500 ML MLS IVC SCH (14:30)
[2016-09-20 07:33] LABS: Basophils % 0.5 %; Eosinophils # 0.2 K/mcL (0.0-0.6); Eosinophils % 2.7 %; Hematocrit 43.4 % (37.5-50.1); Hemoglobin 14.3 g/dL (12.9-16.9); Immature Granulocytes % 0.7 % (0-4); Lymphocytes # 1.4 K/mcL (0.6-4.6); Lymphocytes % 17.2 %; Mean Corpuscular HGB Conc 32.9 g/dL (31.6-35.5); Mean Corpuscular Hemoglobin 30.8 pg (28.0-33.3); Mean Corpuscular Volume 93.5 fL (83.0-100.0); Monocytes % 12.1 %; Neutrophils # 5.4 K/mcL (1.6-8.9); Platelet Count 168 K/mcL (140-400); Red Blood Count 4.64 M/mcL (4.19-5.50); Red Cell Distribution Width 13.2 % (11.5-14.5); Segmented Neutrophils % 66.8 %
[2016-09-20] MEDS: Budesonide/Formoterol 160/4.5 MDI IH SCH (07:37)
[2016-09-20 07:54] VITALS: BP 116/66
[2016-09-20] MEDS ORDERED: *HR* Rivaroxaban 10 MG TABLET PO SCH ×2 (08:56→09:30)
--- NOTE | 2016-09-20 09:02 | Discharge Summary ---
<Ankush Casey - Last Filed: 09/20/16 14:52> Date of Encounter: 09/20/16 Time of Encounter: 08:30 - Discharge Diagnosis (1) DVT, popliteal, acute Priority: Primary Status: Acute Qualifiers: Laterality: right Qualified Code(s): I82.431 - Acute embolism and thrombosis of right popliteal vein (2) Hematoma of right lower extremity Priority: Secondary Status: Acute Qualifiers: Encounter type: subsequent encounter Qualified Code(s): S80.11XD - Contusion of right lower leg, subsequent encounter (3) Chronic anticoagulation Priority: Secondary Status: Chronic (4) Atrial fibrillation Priority: Secondary Status: Acute Qualifiers: Atrial fibrillation type: paroxysmal Qualified Code(s): I48.0 - Paroxysmal atrial fibrillation (5) Supratherapeutic INR Priority: Secondary Status: Acute (6) COPD (chronic obstructive pulmonary disease) Priority: Secondary Status: Acute Qualifiers: COPD type: unspecified COPD Qualified Code(s): J44.9 - Chronic obstructive pulmonary disease, unspecified - Discharge Medications Prescriptions: Rivaroxaban [Xarelto] 20 mg PO DAILY #30 tablet Home Medications: Albuterol Sulfate [Proventil Hfa] 2 puff IH Q4-6H PRN 06/28/15 [History] Fluticasone/Salmeterol [Advair 500-50 Diskus] 1 each IH BID 06/28/15 [History] Gabapentin [Neurontin] 300 mg PO TID 06/28/15 [History] Montelukast [Singulair] 10 mg PO HS 06/28/15 [History] Diltiazem CD (24hr) [Cardizem CD] 120 mg PO DAILY #30 cap.er.24h 06/29/15 [Rx] Propafenone [Rhythmol] 150 mg PO Q8HR #90 tablet 08/16/15 [Rx] Cholestyramine 4 gm PO DAILY 09/17/16 [History] Fluticasone Propionate Nasal [Flonase] 50 mcg NS BID 09/17/16 [History] Rivaroxaban [Xarelto] 20 mg PO DAILY #30 tablet 09/20/16 [Rx] Allergies/Adverse Reactions: Allergies Penicillins [PCN] Adverse Reaction (Verified 02/20/16 07:14) Gastrointestinal Upset Procedures/tests Complete & Pending: Procedures Performed prior 72 hours Category Date Time Status CT lower leg RT wo con [CT] Stat Cat Scan 09/18/16 11:30 Completed Date of admission: 09/17/16 20:03 Primary care physician: Misha Jensen Jr, MD Consults: [facility] Discharging clinician: Ankush Casey Anticipated date of discharge: 09/20/16 - Patient Status Disposition: Home, Self-Care Condition: Good Functional capacity at discharge: independent ambulation Overall status at discharge: patient is progressing back to baseline - Discharge Instructions Instructions: Rivaroxaban (By mouth), Peripheral Vascular Disorders (DC) Follow Up With: Mihsa Jensen Jr, MD [Primary Care Provider] - 09/27/16 1:30 pm [facility] [Provider Group] Additional Instructions: Please take Xarelto 20 mg by mouth daily for anticoagulation. Please also be aware that your Coumadin has been discontinued. 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 Please have lab (complete blood count) done on 09/30/16. Please follow up with your primary care provider within a week. Please follow up with hematology clinic at [facility]. - Diet and Activity Activity: increase activity as tolerated Diet: advance to your usual diet Hospital course: Mr. Persaud is a 75 year old male on chronic Coumadin for A-fib and history of DVT. Patient was admitted after LE venous Duplex found acute DVT in the right popliteal and gastrocnemius veins. Patient was also noted to have supratherapeutic INR at 4.0. Patient was started on heparin drip since admission. The DVT is likely provoked from right lower leg trauma 5 days prior to admission and/or long-time immobility (on flight). Patient also has right lower leg hematoma with hyperdense lesion/collection within the lateral SQ tissues at size of 7.8 x 4.0 x [address] LE. The size of hematoma and patient 's H&H remains stable throughout hospitalization and the swelling of right lower leg reduced since. No bleeding sign such as hematuria, hematochezia/ melena noted. Hematology recommends switch back to Xarelto 20 mg PO daily given the INR fluctuation with Coumadin possibly contributed to significant hematoma on initial trauma as well as acute DVT in the right lower extremity. But patient will need closely monitoring given his history of GI bleeding while on Xarelto previously. Patient agrees with the plan. Will discharge patient home after he gets his first dose of Xarelto. 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 - Time Spent with Patient Total time spent providing and/or coordinating discharge services: Greater than 30 minutes - Constitutional Vitals: Temp Pulse Resp BP Pulse Ox 98.5 F 61 17 116/66 97 09/20/16 07:25 09/20/16 07:25 09/20/16 07:38 09/20/16 07:25 09/20/16 07:38 General appearance: Present: cooperative, A&O X 3, pleasant, no acute distress - Head Head exam: Present: atraumatic, normocephalic - Eye Eye exam: Present: PERRL, conjuntiva pink, sclera anicteric - Neck Neck exam general surgery: Present: supple, trachea midline. Absent: lymphadenopathy - Respiratory Respiratory exam: Present: CTAB. Absent: accessory muscle use, rales, rhonchi, wheezes - Cardiovascular Cardiovascular exam: Present: RRR, +S1, +S2. Absent: diastolic murmur, gallop, rubs, systolic murmur - GI/Abdominal GI/Abdominal exam: Present: normal bowel sounds, soft, no peritoneal signs. Absent: distended, tenderness - Extremities Exam Extremities exam: Present: warm, radial pulses palpable and symetrical. Absent : cyanotic Additional comments: Right lower leg swelling improves compared to yesterday. Hematoma at lateral side of mid lower leg size remains stable. Right dorsalis pedis pulse palpable. Bilateral LE skin change with appearing of venous stasis. - Neurological Exam Neurological exam: Present: CN II-XII intact, oriented X3, no focal deficits. Absent: pronater drift, facial droop, speech deficit - Skin Skin exam: Present: dry, intact <Shellie Herrera - Last Filed: 09/20/16 19:22> Procedures/tests Complete & Pending: Procedures Performed prior 72 hours Category Date Time Status CT lower leg RT wo con [CT] Stat Cat Scan 09/18/16 11:30 Completed Date of admission: 09/17/16 20:03 Primary care physician: Misha Jensen Jr, MD Hospital course: Mr. Persaud is a 75 year old male - Time Spent with Patient Total time spent providing and/or coordinating discharge services: - Constitutional Vitals: Temp Pulse Resp BP Pulse Ox 98.5 F 61 17 116/66 97 09/20/16 07:25 09/20/16 07:25 09/20/16 07:38 09/20/16 07:25 09/20/16 07:38 - Attending Attestation I examined this patient and reviewed laboratory, imaging and all diagnostic data. My medical decision-making was reviewed with Ankush Luna - Resident Physician. I agree with the documented findings, disposition and treatment plan as described above.
[2016-09-20] MEDS: Fluticasone Propionate Nasal 50 MCG/SPRAY BOTTLE NS SCH (09:47)
[2016-09-20] MEDS: Gabapentin 300 MG CAPSULE PO SCH (09:48)
[2016-09-20] MEDS: Cholestyramine 4 GM POWD.PACK PO SCH (09:48)
[2016-09-20] MEDS: Diltiazem CD (24hr) 120 MG CAPSULE PO SCH (09:48)
[2016-09-20 10:30] LABS: INR 1.6; Prothrombin Time 17.9 Seconds (9.4-12.1)
== END 2016-09-20 11:25 | disposition home or self-care (01) | DRG 301 ==
LOC: 3ANU 13:46 → EMEROO 13:46 → 3ANU 20:05
PROVIDERS: ADMIT Internal Medicine; ATTEND Internal Medicine

== ENCOUNTER 2017-01-15 15:03 | Observation (INO) ==
[2017-01-15 20:57] LABS: Basophils % 0.7 %; Eosinophils # 0.4 K/mcL (0.0-0.6); Eosinophils % 6.4 %; Hematocrit 48.5 % (37.5-50.1); Hemoglobin 16.1 g/dL (12.9-16.9); Immature Granulocytes % 0.2 % (0-4); Immature Platelets 6.5 % (1.1-6.1); Lymphocytes % 35.8 %; Mean Corpuscular HGB Conc 33.2 g/dL (31.6-35.5); Mean Corpuscular Hemoglobin 31.3 pg (28.0-33.3); Mean Corpuscular Volume 94.2 fL (83.0-100.0); Mean Platelet Volume 10.2 fL (9.4-12.4); Monocytes # 0.8 K/mcL (0.0-1.3); Monocytes % 13.3 %; Neutrophils # 2.5 K/mcL (1.6-8.9); Platelet Count 167 K/mcL (140-400); Red Blood Count 5.15 M/mcL (4.19-5.50); Red Cell Distribution Width 12.7 % (11.5-14.5); Segmented Neutrophils % 43.6 %
[2017-01-15 21:01] LABS: INR 1.3; Prothrombin Time 13.6 Seconds (9.4-12.1)
[2017-01-15 21:04] LABS: Activated Partial Thrombo Time 31.6 Seconds (26.0-36.0)
[2017-01-15 21:10] LABS: BUN/Creatinine Ratio 17 (6-26); Blood Urea Nitrogen 14 mg/dL (8-26); Calcium 9.5 mg/dL (8.6-10.8); Carbon Dioxide 31 mEq/L (19-29); Chloride 106 mEq/L (98-109); Glucose 96 mg/dL (70-99); Osmolality,Calculated 292 (280-300); Potassium 4.6 mEq/L (3.5-4.5); Sodium 141 mEq/L (136-145); eGFR For African Americans > 60 (> 60); eGFR For Non-African Americans > 60 (> 60)
[2017-01-15] MEDS ORDERED: Aspirin 81 MG TAB.CHEW PO ONE (22:21)
--- NOTE | 2017-01-15 22:21 | Emergency Department Note ---
Disposition Clinical Impression: Vertical diplopia CVA (cerebral vascular accident) Qualifiers: CVA mechanism: unspecified Qualified Code(s): I63.9 - Cerebral infarction, unspecified Disposition: Admitted As Inpatient Condition: Good Eye Problem HPI - General Chief complaint: ED Eye Problems Stated complaint: "double vision in right eye" Time Seen by Provider: 01/15/17 19:25 Source: patient Mode of arrival: ambulatory Limitations: no limitations Nursing Notes Reviewed: Yes Vital Signs Reviewed: Yes - History of Present Illness HPI Narrative: 76-year-old male presents with concerns of vertical diplopia for the past 24 hours. Patient states symptoms started all watching a swimming event. He has a mild intermittent headache and has associated diplopia. Patient states he is scheduled for a cataract surgery however he has not had surgery on his eyes prior to this. Patient denies focal neurologic deficits however during the initial evaluation he had a drooping of the right lower face which they were unsure what was new or old. - Related Data Home Medications Medication Instructions Recorded Confirmed Albuterol Sulfate [Proventil Hfa] 2 puff IH Q4-6H PRN 06/28/15 01/15/17 Fluticasone/Salmeterol [Advair 1 each IH BID 06/28/15 01/15/17 500-50 Diskus] Gabapentin [Neurontin] 300 mg PO TID 06/28/15 01/15/17 Montelukast [Singulair] 10 mg PO HS 06/28/15 01/15/17 Cholestyramine 4 gm PO BID 09/17/16 01/15/17 Fluticasone Propionate Nasal 50 mcg NS DAILY 09/17/16 01/15/17 [Flonase] Diltiazem HCl [Diltiazem ER] 120 mg PO DAILY 01/15/17 01/15/17 Furosemide [Lasix] 20 mg PO DAILY PRN 01/15/17 01/15/17 Rivaroxaban [Xarelto] 20 mg PO QPM 01/15/17 01/15/17 Sodium Fluoride/Potassium Nit 1 appl DT BID 01/15/17 01/15/17 [Prevident 5000 Sensitive Paste] Previous Rx's Medication Instructions Recorded Propafenone [Rhythmol] 150 mg PO Q8HR #90 tablet 08/16/15 Allergies Allergy/AdvReac Type Severity Reaction Status Date / Time Penicillins [PCN] AdvReac Gastrointestinal Verified 10/21/16 13:55 Upset All systems ED: reviewed and negative except as stated. Constitutional: Denies: fever, chills, weakness Eyes: Reports: vision change. Denies: eye pain, eye discharge ENT ED: Denies: ear pain, throat pain, dental pain Cardiovascular: Denies: chest pain, palpitations, dyspnea on exertion Respiratory: Denies: cough, dyspnea, wheezes, hemoptysis Gastrointestinal: Denies: abdominal pain, nausea, vomiting Genitourinary: Denies: urgency, dysuria Musculoskeletal: Denies: back pain, neck pain Neurological: Reports: headache, weakness Past Medical History - Past Medical History Attestation: Yes The following information was validated with the patient. Source: patient Medical history: Reports: arthritis, asthma, atrial fibrillation, CHF, COPD, DVT , GI bleed, myocardial infarction, thyroid disease, TIA Surgical history: Reports: cholecystectomy, other Psychiatric history: Reports: no psych history - Social History Smoking Status: Former smoker Smokeless Tobacco Status: No Alcohol use: Reports: rarely, occasionally Drug use: Reports: none Physical Exam General: Alert and in no acute distress Skin: Warm, dry, intact Head: Normocephalic and atraumatic Neck: Supple, trachea midline and no tenderness Cardiovascular: RRR, no murmur, normal perfusion Respiratory: CTAB, no wheezing, cough, or respiratory distress Musculoskeletal: Normal strength, no tenderness, swelling or deformity GI: Soft, nontender, nondistended. Bowel sounds present Neuro: A&O to person, place, time and situation. Finger to nose testing intact , [id number] testing intact. Patient has moderate right sided lower facial droop on the exam. No loss of sensation. No strength loss in the upper or lower extremities bilaterally. Psychiatric: cooperative and appropriate mood and affect. - General Limitations: no limitations General appearance: alert, in no apparent distress Course Vital Signs Temperature 97.6 F 01/15/17 15:36 Pulse Rate 55 01/15/17 15:36 Respiratory Rate 16 01/15/17 15:36 Blood Pressure 124/73 01/15/17 15:36 O2 Sat by Pulse Oximetry 96 01/15/17 15:36 Temperature 97.7 F 01/15/17 23:12 Pulse Rate 59 01/15/17 21:42 Respiratory Rate 20 01/15/17 23:12 Blood Pressure 146/85 01/15/17 23:12 O2 Sat by Pulse Oximetry 95 01/15/17 21:42 Oxygen Delivery Oxygen Delivery Room [facility] Narrative Medical decision making narrative: CT of the head was negative for acute intracranial hemorrhage or mass. Patient will be admitted to the hospital for further evaluation of his vertical diplopia and likely MRI. Patient given aspirin in the emergency department. - Medical Records Medical records reviewed: Yes I reviewed the patient's medical records. - Lab Data Lab results reviewed: Yes I reviewed the patient's lab results. Result diagrams: 01/15/17 20:24 01/15/17 20:24 Lab Results 01/15/17 01/15/17 01/15/17 Range/Units 20:24 20:24 20:24 WBC 5.6 (4.3-11.1) K/mcL RBC 5.15 (4.19-5.50) M/mcL Hgb 16.1 (12.9-16.9) g/dL Hct 48.5 (37.5-50.1) % MCV 94.2 (83.0-100.0) fL MCH 31.3 (28.0-33.3) pg MCHC 33.2 (31.6-35.5) g/dL RDW 12.7 (11.5-14.5) % Plt Count 167 (140-400) K/mcL MPV 10.2 (9.4-12.4) fL Immature Gran % 0.2 (0-4) % Seg Neutrophils % 43.6 % Lymphocytes % 35.8 % Monocytes % 13.3 % Eosinophils % 6.4 % Basophils % 0.7 % Neutrophils # 2.5 (1.6-8.9) K/mcL Lymphocytes # 2.0 (0.6-4.6) K/mcL Monocytes # 0.8 (0.0-1.3) K/mcL Eosinophils # 0.4 (0.0-0.6) K/mcL Basophils # 0.0 (0.0-0.2) K/mcL Immature Plt Fraction 6.5 H (1.1-6.1) % PT 13.6 H (9.4-12.1) Seconds INR 1.3 APTT 31.6 (26.0-36.0) Seconds Sodium 141 (136-145) mEq/L Potassium 4.6 H (3.5-4.5) mEq/L Chloride 106 (98-109) mEq/L Carbon Dioxide 31 H (19-29) mEq/L BUN 14 (8-26) mg/dL Creatinine 0.84 (0.72-1.25) mg/dL Est GFR ( Amer) > 60 (> 60) Est GFR (Non-Af Amer) > 60 (> 60) BUN/Creatinine Ratio 17 (6-26) Glucose 96 (70-99) mg/dL POC Glucose (58-89) Calculated Osmolality 292 (280-300) Calcium 9.5 (8.6-10.8) mg/dL Troponin I (0-0.03) ng/mL 01/15/17 01/15/17 Range/Units 20:24 20:32 WBC (4.3-11.1) K/mcL RBC (4.19-5.50) M/mcL Hgb (12.9-16.9) g/dL Hct (37.5-50.1) % MCV (83.0-100.0) fL MCH (28.0-33.3) pg MCHC (31.6-35.5) g/dL RDW (11.5-14.5) % Plt Count (140-400) K/mcL MPV (9.4-12.4) fL Immature Gran % (0-4) % Seg Neutrophils % % Lymphocytes % % Monocytes % % Eosinophils % % Basophils % % Neutrophils # (1.6-8.9) K/mcL Lymphocytes # (0.6-4.6) K/mcL Monocytes # (0.0-1.3) K/mcL Eosinophils # (0.0-0.6) K/mcL Basophils # (0.0-0.2) K/mcL Immature Plt Fraction (1.1-6.1) % PT (9.4-12.1) Seconds INR APTT (26.0-36.0) Seconds Sodium (136-145) mEq/L Potassium (3.5-4.5) mEq/L Chloride (98-109) mEq/L Carbon Dioxide (19-29) mEq/L BUN (8-26) mg/dL Creatinine (0.72-1.25) mg/dL Est GFR ( Amer) (> 60) Est GFR (Non-Af Amer) (> 60) BUN/Creatinine Ratio (6-26) Glucose (70-99) mg/dL POC Glucose 103 H (58-89) Calculated Osmolality (280-300) Calcium (8.6-10.8) mg/dL Troponin I 0.00 (0-0.03) ng/mL - Radiology Data Radiology results reviewed: Yes I reviewed the patient's radiology results.
--- NOTE | 2017-01-16 00:31 | Internal Med History&Physical ---
Date of Encounter: 01/16/17 Time of Encounter: 00:30 Assessment and Plan (1) TIA (transient ischemic attack) Current visit: Yes Status: Acute Patient with history of AFIB on systemic anticoagulation presented with signs and symptoms of concerning for possible stroke, abrupt onset of vertical diplopia, facial droop, non contrast CT head was -ve for bleed Last known baseline was on 01/14 prior to 8am, her is past the first 24 hours so modified stroke protocol will be performed will check MRI brain/MRA head and neck w/o contrast for stroke and also evaluate the intracranial vessels Check 2D Echo with saline to assess for PFO and thrombus Neurochecks ASA 81mg qday and Lipitor 80mg qday, inpatient Neurology consult not necessary unless MRI reports a stroke no need for PT/OT as no gross neuro deficit, he will need to follow up with his chief cloth finishing range operator on the outpatient will follow workup Qualifiers: Transient cerebral ischemia type: amaurosis fugax Qualified Code(s): G45.3 - Amaurosis fugax (2) Hyperkalemia Current visit: Yes Status: Acute mild, no need for any intervention, will follow BMP (3) Atrial fibrillation Current visit: Yes Status: Chronic on systemic anticoagulation and rate control which we will continue Qualifiers: Atrial fibrillation type: paroxysmal Qualified Code(s): I48.0 - Paroxysmal atrial fibrillation (4) COPD (chronic obstructive pulmonary disease) Current visit: Yes Status: Chronic will do PRN nebs Qualifiers: COPD type: chronic bronchitis Chronic bronchitis type: simple Qualified Code(s): J41.0 - Simple chronic bronchitis (5) 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 Persaud is a 76 year old male with a hx of TIA about 40 years ago/ paroxysmal AFIB/recurrent DVT's on systemic anticoagulation was brought in for "seeing double". He reports being in his usual state of health until the morning of 01/14 when whilst reading a newspaper he started noticing visual problems mainly seeing double. He paid it no mind and drove with his on their way to [place] but whilst driving he noticed that one truck was on top of another and asked the about it but she was unsure what he was referring to. They at that point switched drivers but this seeing double continued throughout the day. This lasted through to the next day so he called his chief cloth finishing range operator on 01/15 in the morning as to whether this was related to his cataract for which he has a planned surgery but his chief cloth finishing range operator was concerned and asked him to come to the ER. He reports having a headache at the same time as the double vision began, it was frontal in location, sharp in character and around 5/10 in severity and lasted for about 24 hours. He denies any numbness or tingling sensation, no focal deficits that he was aware of, no loss of speech, dexterity problems or slurred speech. In the ER he was noted to have a slight facial droop on the right side that his was unsure off. He reports bumping his head 2 days prior to the onset of these symptoms with no loss of consciousness of confusion afterwards. Past Med Surg Social Fam HX - Past Medical History Medical history: arthritis, asthma, atrial fibrillation, CHF, COPD, DVT, GI bleed, myocardial infarction, thyroid disease, TIA Psychiatric history: no psych history - Past Surgical History Surgical History: cholecystectomy, other - Social History Smoking Status: Former smoker Smokeless Tobacco Status: No Alcohol use: rarely, occasionally Drug use: none - Family History Mother Adopted: No Living Status: Hx Family Cardiac Disorders: Yes (pancreatic) Hx Family Cancer: No (PANCREATIC) Father Adopted: No Hx Family Cancer: Yes (jaw and colon) Internal Medicine - H&P: Meds Albuterol Sulfate [Proventil Hfa] 2 puff IH Q4-6H PRN 06/28/15 [History] Fluticasone/Salmeterol [Advair 500-50 Diskus] 1 each IH BID 06/28/15 [History] Gabapentin [Neurontin] 300 mg PO TID 06/28/15 [History] Montelukast [Singulair] 10 mg PO HS 06/28/15 [History] Propafenone [Rhythmol] 150 mg PO Q8HR #90 tablet 08/16/15 [Rx] Cholestyramine 4 gm PO BID 09/17/16 [History] Fluticasone Propionate Nasal [Flonase] 50 mcg NS DAILY 09/17/16 [History] Diltiazem HCl [Diltiazem ER] 120 mg PO DAILY 01/15/17 [History] Furosemide [Lasix] 20 mg PO DAILY PRN 01/15/17 [History] Rivaroxaban [Xarelto] 20 mg PO QPM 01/15/17 [History] Sodium Fluoride/Potassium Nit [Prevident 5000 Sensitive Paste] 1 appl DT BID [History] Allergies Penicillins [PCN] Adverse Reaction (Verified 10/21/16 13:55) Gastrointestinal Upset All Systems PM: A 10-system review of systems was performed and is negative for pertinent findings except as documented above in the HPI. - Constitutional Vitals: Temp Pulse Resp BP Pulse Ox 97.7 F 59 20 146/85 95 01/15/17 23:12 01/15/17 21:42 01/15/17 23:12 01/15/17 23:12 01/15/17 21:42 GENERAL: Adult male, lying in bed in no sign of distress, Alert, communicative with clear speech HEENT: NC/AT, EOMI, PERRLA, anicteric sclera, normal conjunctiva, supple, clear nares, moist mucous membranes, RESP: Lungs are clear to auscultation bilaterally, good AE bilaterally, No crackles or wheeze CARDIO: Normal hearts sounds; S1 and 2, RRR with no murmurs, no JVD, no ankle edema GI: Soft, full, no tenderness, no organomegaly felt, normal bowel sounds heard MUSCULOSKELETAL: grossly normal movements bilaterally, no deformities noted, no calf tenderness NEUROLOGIC: CN 2-12 intact grossly. No gross motor/sensory deficit appreciated, PSYCHIATRY: AAO x 3. Mood is fair, SKIN: stasis dermatitis lesions on the bilateral lower extremities Internal Med - H&P Results - Labs CBC & Chem 7: 01/15/17 20:24 01/15/17 20:24
[2017-01-16] MEDS ORDERED: Naloxone 0.4 MG/ML INJ IVP PRN (00:54)
[2017-01-16] MEDS ORDERED: Furosemide 20 MG TABLET PO PRN (01:48)
[2017-01-16 05:39] LABS: BUN/Creatinine Ratio 16 (6-26); Blood Urea Nitrogen 14 mg/dL (8-26); Carbon Dioxide 28 mEq/L (19-29); Chloride 107 mEq/L (98-109); Chol/HDL Ratio 3.5 (0-4.9); Cholesterol 126 mg/dL (< 200); Glucose 105 mg/dL (70-99); HDL Cholesterol 36 mg/dL (40-59); LDL Cholesterol,Calculated 73 mg/dL (0-99); Magnesium 1.8 mg/dL (1.6-2.6); Osmolality,Calculated 293 (280-300); Phosphorous 3.2 mg/dL (2.3-4.7); Potassium 3.6 mEq/L (3.5-4.5); Sodium 141 mEq/L (136-145); Triglycerides 83 mg/dL (< 150); eGFR For African Americans > 60 (> 60); eGFR For Non-African Americans > 60 (> 60)
[2017-01-16 05:59] LABS: Hemoglobin A1C 5.1 %
[2017-01-16] MEDS: *HR* Rivaroxaban 10 MG TABLET PO SCH ×2 (06:06→17:33)
[2017-01-16] MEDS: Diltiazem CD (24hr) 120 MG CAPSULE PO SCH (07:52)
[2017-01-16] MEDS: Fluticasone Propionate Nasal 50 MCG/SPRAY BOTTLE NS SCH (07:52)
[2017-01-16] MEDS: Gabapentin 300 MG CAPSULE PO SCH ×3 (07:52→21:04)
[2017-01-16] MEDS: Aspirin 81 MG TAB.CHEW PO SCH (07:52)
[2017-01-16] MEDS: Cholestyramine 4 GM POWD.PACK PO SCH ×2 (07:52→21:03)
[2017-01-16] MEDS: [UNRECOGNIZED DRUG - MIXTURE] TP SCH ×2 (07:53→20:56)
[2017-01-16] MEDS: Budesonide/Formoterol 160/4.5 MDI IH SCH ×2 (10:51→19:37)
--- NOTE | 2017-01-16 15:16 | Electrocardiograph Report ---
[place] [id number] Test Date: 2017-01-15 Pat Name: Keon Persaud Department: 103 Room: 3B16 Gender: M Cover Inspector: : 1940 Requested By: Hesham Hancock Order Number: [id number] Reading MD: Mack Resendez MD Measurements Intervals Stanley Rate: 51 P: 56 MS: 280 QRS: -48 QRSD: 118 T: 50 QT: 485 QTc: 462 Interpretive Statements SINUS BRADYCARDIA WITH FIRST DEGREE AV BLOCK MARKED LEFT AXIS DEVIATION PROLONGED QT INTERVAL Electronically Signed On 01-16-2017 15:14:33 EDT by Mack Resendez MD
--- NOTE | 2017-01-16 18:14 | Event Note ---
Date of Encounter: 01/16/17 Time of Encounter: 09:40 Patient was seen and assessed at 9:40 AM. He is alert, oriented, a EKG, excellent historian. Patient reports that 2 days ago he was trying to read the newspaper and states a history and was "FUZZY". Patient states that he is waiting on cataract surgery and has not heard back from the jewish history professor, Dr. Horner. He reports that about 2-3 hours later his driving to [place] and began having vertical diplopia. He continued his trip drove back home and call Dr. Saenz the next day who told him to come to the emergency department. He denies any slurred speech, there is no weakness, there is no confusion. He does have right facial droop at the mouth, he states this is not new and he has had it for years. His gait is steady, there is no dizziness, he is able to follow commands, and he is entirely neurologically intact. He is not being discharged tonight because his echocardiogram results are not back yet. We had made contact with jewish history professor office, patient will need to sign a release to have test results sent to the office so he can have an evaluation in cataract surgery. MR head brain without contrast showed no acute intracranial process, mild white matter changes and old bilateral cerebellar infarcts. Negative noncontrast MRA of head and neck. Head CT showed no acute intracranial abnormality. His labs are within normal limits. Echocardiogram is still pending. If it is within normal limits, he will go home in the morning. Reclamation Furnace Operator states that he will call him tomorrow to make contact for surgery and evaluation. Patient is aware that he should not be driving, his does still drive. His physical exam is unremarkable. He has no anterior posterior cervical adenopathy, S1-S2 is heard regular rate and rhythm without gallops, clicks, murmurs. Lungs clear anteriorly and posteriorly, no wheezing, stridor, rales, or respiratory distress. Abdomen is soft and nontender with bowel sounds present. Pupils are equal round and reactive to light and accommodation, cranial nerves are intact, hand grasps and foot press/pull are strong and equal william. Pt is aware that he will be staying overnight and possibly discharged in the a.m.
[2017-01-17] MEDS: Budesonide/Formoterol 160/4.5 MDI IH SCH (08:05)
[2017-01-17] MEDS: Gabapentin 300 MG CAPSULE PO SCH (08:47)
[2017-01-17] MEDS: Aspirin 81 MG TAB.CHEW PO SCH (08:48)
[2017-01-17] MEDS: Fluticasone Propionate Nasal 50 MCG/SPRAY BOTTLE NS SCH (08:48)
[2017-01-17] MEDS: Diltiazem CD (24hr) 120 MG CAPSULE PO SCH (08:48)
[2017-01-17] MEDS: Cholestyramine 4 GM POWD.PACK PO SCH (08:48)
[2017-01-17] MEDS: [UNRECOGNIZED DRUG - MIXTURE] TP SCH (08:49)
[2017-01-17 09:02] LABS: Basophils % 0.4 %; Eosinophils # 0.2 K/mcL (0.0-0.6); Eosinophils % 2.3 %; Hematocrit 48.2 % (37.5-50.1); Immature Granulocytes % 0.1 % (0-4); Lymphocytes # 1.6 K/mcL (0.6-4.6); Lymphocytes % 22.9 %; Mean Corpuscular HGB Conc 33.2 g/dL (31.6-35.5); Mean Corpuscular Hemoglobin 30.9 pg (28.0-33.3); Mean Corpuscular Volume 93.2 fL (83.0-100.0); Mean Platelet Volume 10.5 fL (9.4-12.4); Monocytes # 0.7 K/mcL (0.0-1.3); Monocytes % 10.7 %; Neutrophils # 4.4 K/mcL (1.6-8.9); Platelet Count 164 K/mcL (140-400); Red Blood Count 5.17 M/mcL (4.19-5.50); Red Cell Distribution Width 12.7 % (11.5-14.5); Segmented Neutrophils % 63.6 %
[2017-01-17 09:15] LABS: BUN/Creatinine Ratio 13 (6-26); Blood Urea Nitrogen 11 mg/dL (8-26); Calcium 9.3 mg/dL (8.6-10.8); Carbon Dioxide 28 mEq/L (19-29); Chloride 108 mEq/L (98-109); Glucose 103 mg/dL (70-99); Osmolality,Calculated 292 (280-300); Potassium 3.9 mEq/L (3.5-4.5); Sodium 141 mEq/L (136-145); eGFR For African Americans > 60 (> 60); eGFR For Non-African Americans > 60 (> 60)
[2017-01-17 11:40] VITALS: BP 130/72
--- NOTE | 2017-01-17 12:46 | Discharge Summary ---
Date of Encounter: 01/17/17 Time of Encounter: 09:30 - Discharge Diagnosis (1) TIA (transient ischemic attack) Priority: Primary Status: Acute Comments: Patient has a history of A. fib and is on anticoagulation. He presented with signs and symptoms concerning for possible stroke. His main concern was vertical diplopia and blurred vision with sudden onset 2 days prior to arrival. Patient has right facial droop, patient did look in the mirror and states that he has had that for year and denies change. He has been neurologically intact since he has been here. He is able to follow an object through the cardinal mena of gaze, he does have cataracts. His strength independently and against resistance is strong and equal in all extremities, neck, and shoulders. His facial movements are symmetrical his gait is steady his speech is clear. He is back at baseline and denies headaches, nausea, vision changes other than diplopia only with his glasses, ataxia, dysphasia. We did noticed this morning that patient only has diplopia when he has his glasses on. Without glasses his vision is normal. his head CT and head MRI, as well as MRA of the brain and neck were negative for acute processes. His echocardiogram showed an LVEF of 55% with mild concentric left ventricular hypertrophy, mild diastolic dysfunction. Normal RV function with sunrise normal in apical views, enlarged in other views. Mild AR, mild MR, IVC is dilated. Descending aorta cannot be measured and will need alternate imaging if necessary. 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 Troponins are negative. Patient denied chest pain. Head CT 01/15/17 20:08 IMPRESSION: No acute intracranial abnormality. D/ / Tiara Kincaid Cha, MD / Tiara Kincaid Cha, MD Interpreting Provider: Tiara Kincaid Cha, MD Brain MRI 01/16/17 00:56 IMPRESSION: No acute intracranial process. 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 Negative noncontrast MRA neck. Negative noncontrast MRA head. D/ / Kwaku Tolentino MD / Kwaku Tolentino MD Interpreting Provider: Kwaku Tolentino MD Head MRA 01/16/17 00:56 IMPRESSION: No acute intracranial process. 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 Negative noncontrast MRA neck. Negative noncontrast MRA head. D/ / Kwaku Tolentino MD / Kwaku Tolentino MD Interpreting Provider: Kwaku Tolentino MD Neck MRA 01/16/17 00:56 IMPRESSION: No acute intracranial process. 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 Negative noncontrast MRA neck. Negative noncontrast MRA head. D/ / Kwaku Tolentino MD / Kwaku Tolentino MD Interpreting Provider: Kwaku Tolentino MD Qualifiers: Transient cerebral ischemia type: amaurosis fugax Qualified Code(s): G45.3 - Amaurosis fugax (2) Atrial fibrillation Priority: Secondary Status: Chronic Comments: Eleazar griggs is rate controlled and he is on chronic anticoagulation. Qualifiers: Atrial fibrillation type: paroxysmal Qualified Code(s): I48.0 - Paroxysmal atrial fibrillation (3) COPD (chronic obstructive pulmonary disease) Priority: Secondary Status: Chronic Comments: No acute exacerbation. No supplemental oxygen as required. Lungs are clear. Continue with home medications and regimen. Qualifiers: COPD type: chronic bronchitis Chronic bronchitis type: simple Qualified Code(s): J41.0 - Simple chronic bronchitis (4) Chronic anticoagulation Priority: Secondary Status: Chronic Comments: Patient is on Xarelto daily. (5) Vertical diplopia Priority: Secondary Status: Acute Comments: Acute onset several days prior to admission. He did notice today that patient only has the diplopia when he has his glasses on. Vision is his normal without his glasses, no diplopia. Patient is following up with respite worker today. All records will be forwarded to respite worker today after patient signs waiver. 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 Most recent one was in August,. He reports all of his DVTs follow long distance travel by airplane. August, he was in [place]. He will remain on Xarelto. - Discharge Medications Home Medications: Albuterol Sulfate [Proventil Hfa] 2 puff IH Q4-6H PRN 06/28/15 [History] Fluticasone/Salmeterol [Advair 500-50 Diskus] 1 each IH BID 06/28/15 [History] Gabapentin [Neurontin] 300 mg PO TID 06/28/15 [History] Montelukast [Singulair] 10 mg PO HS 06/28/15 [History] Propafenone [Rhythmol] 150 mg PO Q8HR #90 tablet 08/16/15 [Rx] Cholestyramine 4 gm PO BID 09/17/16 [History] Fluticasone Propionate Nasal [Flonase] 50 mcg NS DAILY 09/17/16 [History] Diltiazem HCl [Diltiazem ER] 120 mg PO DAILY 01/15/17 [History] Furosemide [Lasix] 20 mg PO DAILY PRN 01/15/17 [History] Rivaroxaban [Xarelto] 20 mg PO QPM 01/15/17 [History] Sodium Fluoride/Potassium Nit [Prevident 5000 Sensitive Paste] 1 appl DT BID [History] Allergies/Adverse Reactions: Allergies Penicillins [PCN] Adverse Reaction (Verified 10/21/16 13:55) Gastrointestinal Upset Procedures/tests Complete & Pending: Procedures Performed prior 72 hours Category Date Time Status MR angio head wo con [MR] Routine MRI 01/16/17 00:56 Completed MR angio neck wo con [MR] Routine MRI 01/16/17 00:56 Completed MR head/brain wo con [MR] Routine MRI 01/16/17 00:56 Completed EV echocardiogram Routine Y 01/16/17 00:57 Completed Date of admission: 01/15/17 22:56 Primary care physician: Misha Jensen Jr, MD Discharging clinician: Su Hernandez Anticipated date of discharge: 01/17/17 - Patient Status Disposition: Home, Self-Care Functional capacity at discharge: independent ambulation Overall status at discharge: patient is progressing back to baseline - Discharge Instructions Follow Up With: Misha Jensen Jr, MD [Primary Care Provider] - 01/20/17 11:00 am Ryan Horner OD [Non-Partnered Physician] - (The office will call you to schedule your next appt.) Additional Instructions: Make sure that you make contact with Dr. Horner today. Your records will be faxed to his office. Resume your normal home medications. Do not drive until you are cleared by Dr. Horner or your primary care physician. If your symptoms return or worsen, return to the emergency room. Return to the emergency room for any other problems or concerns that you may have. - Diet and Activity Activity: increase activity as tolerated Diet: advance to your usual diet Hospital course: Mr. Persaud is a 76 year old male with past medical history of A. fib, hypertension, recurrent DVT, who presented to the emergency department on January 16 for diplopia. He was reading the newspaper and noticed that he was having visual changes, blurred vision, that was not normal for him. He is to have cataract surgery, however as of this date has not been scheduled. Patient states that he drove to [place] later that day and noticed that he began having vertical diplopia. The diplopia continued, continues now. Patient is to have cataract surgery by respite worker, however it has not been scheduled yet. Patient was worked up for a TIA, due to history of one approximately 40 years ago, A. fib, and recurrent DVTs. Patient denied headache to me, however he reports to the admitting physician that he had a headache that was frontal, sharp and rated 5/10 and lasted for about a day. He currently has no headache. He denies slurred speech, weakness, confusion. He says that the next day, he returned home and told his respite worker of what happened, he was told to come to the emergency department. Patient does have right facial droop at the mouth, he states this is not new and he has had it for years and is unchanged. His gait is steady, there is no dizziness, is able to follow commands, and he is neurologically intact. MR head/brain without contrast showed no acute intracranial process, mild white matter changes and old bilateral cerebellar infarcts. He had negative noncontrast MRA of head and neck. Head CT showed no acute intracranial abnormality. His labs have remained within normal limits. His echocardiogram showed LVEF of 55% with mild concentric LV hypertrophy. There is mild LV diastolic dysfunction. RV size is measured normally and apical views, however appears enlarged in other views, function is normal. There is mild AR, mild MR , descending aorta cannot be well measured. He may have a follow-up CT on an outpatient basis if his provider so chooses. He has an aneurysmal interatrial septum with positive saline bubble study for PFO, there is no intervention needed. All wall segments showed normal motion. His respite worker will make contact with him today to make arrangements for his cataract surgery. All records have been faxed. Patient and I discussed the fact that he should not be driving until he is cleared by ophthalmology or primary care physician. We did notice today that he only has diplopia when he is wearing his glasses. When his glasses are off his vision is what is normal for him, blurred in the distance. Patient is able to see well up close, he denies diplopia without his glasses in near and far vision. Labs have remained within normal limits. His vital signs have been stable. Patient is ready for discharge. - Time Spent with Patient Total time spent providing and/or coordinating discharge services: Less than 30 minutes - Constitutional Vitals: Temp Pulse Resp BP Pulse Ox 98.1 F 58 17 130/72 94 01/17/17 11:33 01/17/17 11:33 01/17/17 11:33 01/17/17 11:33 01/17/17 11:33 General appearance: Present: cooperative, A&O X 3, pleasant, no acute distress, answers questions appropriately - Head Head exam: Present: normal inspection - Eye Eye exam: Present: EOMI, normal appearance, conjuntiva pink. Absent: nystagmus , periorbital swelling, periorbital tenderness - ENT ENT exam: Present: mucous membranes moist, normal exam, normal external ear exam - Respiratory Respiratory exam: Present: CTAB. Absent: chest wall tenderness, decreased breath sounds, rales, respiratory distress, rhonchi, stridor, tachypnea - Cardiovascular Cardiovascular exam: Present: RRR, +S1, +S2. Absent: diastolic murmur, systolic murmur - GI/Abdominal GI/Abdominal exam: Present: distended, normal bowel sounds, soft. Absent: hepatomegaly, tenderness - Extremities Exam Extremities exam: Present: full ROM, pedal edema, warm, radial pulses palpable and symetrical. Absent: normal capillary refill, normal inspection, tenderness - Expanded Lower Extremities Exam Lower Leg exam: Absent: normal inspection Neuro vascular tendon exam: Absent: no vascular compromise - Neurological Exam Neurological exam: Present: alert, oriented X3, no focal deficits, strengths equal and symetr throughout. Absent: altered, pronater drift, facial droop, speech deficit Additional comments: Facial droop remains unchanged from normal. - Skin Skin exam: Present: dry, intact, normal color, warm. Absent: rash
== END 2017-01-17 14:44 | disposition home or self-care (01) ==
LOC: EMEROO 15:03 → 3BNU 15:03
PROVIDERS: ADMIT Registered Nurse; ATTEND Registered Nurse

== ENCOUNTER 2021-12-25 15:05 | Inpatient (IN) ==
[2021-12-25 17:40] LABS: Basophils % 0.5 %; Eosinophils # 0.3 K/mcL (0.0-0.6); Eosinophils % 4.3 %; Hematocrit 43.5 % (37.5-50.1); Hemoglobin 13.9 g/dL (12.9-16.9); Immature Granulocytes % 0.2 % (0-4); Lymphocytes # 1.7 K/mcL (0.6-4.6); Lymphocytes % 27.6 %; Mean Corpuscular Hemoglobin 31.8 pg (28.0-33.3); Mean Corpuscular Volume 99.5 fL (83.0-100.0); Mean Platelet Volume 9.7 fL (9.4-12.4); Monocytes # 0.7 K/mcL (0.0-1.3); Monocytes % 10.9 %; Neutrophils # 3.6 K/mcL (1.6-8.9); Platelet Count 204 K/mcL (140-400); Red Blood Count 4.37 M/mcL (4.19-5.50); Red Cell Distribution Width 13.5 % (11.5-14.5); Segmented Neutrophils % 56.5 %; White Blood Count 6.3 K/mcL (4.3-11.1)
[2021-12-25] MEDS ORDERED: Naloxone 0.4 MG/ML INJ IVP PRN (17:43)
[2021-12-25 17:59] LABS: C-Reactive Protein 6 mg/L (Less than 10)
[2021-12-25 18:25] LABS: eGFR For African Americans > 60 (> 60); eGFR For Non-African Americans > 60 (> 60)
[2021-12-25] MEDS ORDERED: Vancomycin 1,750 MG/517.5 ML IV.SOLN IVPB ONE (18:30)
[2021-12-26] MEDS: Piperacillin/Tazobactam 3.375 GM in 0.9 % Sodium Chloride Mini Bag 100 ML IVPB SCH ×4 (01:52→21:44)
[2021-12-26 04:30] LABS: Basophils % 0.6 %; Eosinophils # 0.3 K/mcL (0.0-0.6); Eosinophils % 5.5 %; Hematocrit 39.2 % (37.5-50.1); Hemoglobin 12.7 g/dL (12.9-16.9); Immature Granulocytes % 0.4 % (0-4); Lymphocytes # 1.5 K/mcL (0.6-4.6); Lymphocytes % 27.9 %; Mean Corpuscular HGB Conc 32.4 g/dL (31.6-35.5); Mean Corpuscular Hemoglobin 31.8 pg (28.0-33.3); Mean Corpuscular Volume 98.2 fL (83.0-100.0); Mean Platelet Volume 9.9 fL (9.4-12.4); Monocytes # 0.7 K/mcL (0.0-1.3); Monocytes % 12.2 %; Neutrophils # 2.9 K/mcL (1.6-8.9); Platelet Count 210 K/mcL (140-400); Red Blood Count 3.99 M/mcL (4.19-5.50); Red Cell Distribution Width 13.5 % (11.5-14.5); Segmented Neutrophils % 53.4 %; White Blood Count 5.4 K/mcL (4.3-11.1)
[2021-12-26 05:20] LABS: BUN/Creatinine Ratio 12 (6-26); Blood Urea Nitrogen 10 mg/dL (8-23); Calcium 8.5 mg/dL (8.6-10.3); Carbon Dioxide 28 mEq/L (23-29); Chloride 106 mEq/L (98-107); Glucose 79 mg/dL (70-105); Osmolality,Calculated 288 (280-300); Potassium 4.1 mEq/L (3.5-5.1); Sodium 140 mEq/L (136-145); eGFR For African Americans > 60 (> 60); eGFR For Non-African Americans > 60 (> 60)
[2021-12-26] MEDS ORDERED: *HR* Enoxaparin 120 MG/0.8 ML SYRINGE SQ SCH (08:55)
[2021-12-26] MEDS: Metoprolol XL (24 HR) Succ 50 MG TAB.ER.24H PO SCH (11:51)
[2021-12-26] MEDS: DilTIAZem CD (24hr) 120 MG CAP.ER.24H PO SCH (11:51)
[2021-12-26] MEDS: Gabapentin 300 MG CAPSULE PO SCH ×2 (11:51→21:43)
[2021-12-26] MEDS ORDERED: *HR* Enoxaparin 120 MG/0.8 ML SYRINGE SQ ONE (17:00)
[2021-12-26] MEDS: Vancomycin 1,750 MG/517.5 ML IV.SOLN IVPB SCH (17:52)
[2021-12-26] MEDS: Cholestyramine 4 GM POWD.PACK PO SCH (19:50)
[2021-12-26] MEDS: Budesonide/Formoterol 160/4.5 1 PUFF INH IH SCH (21:41)
[2021-12-27 04:28] LABS: Hematocrit 39.1 % (37.5-50.1); Hemoglobin 12.7 g/dL (12.9-16.9); Mean Corpuscular HGB Conc 32.5 g/dL (31.6-35.5); Mean Corpuscular Hemoglobin 31.9 pg (28.0-33.3); Mean Corpuscular Volume 98.2 fL (83.0-100.0); Red Blood Count 3.98 M/mcL (4.19-5.50); White Blood Count 6.1 K/mcL (4.3-11.1)
[2021-12-27 04:29] LABS: Basophils % 0.7 %; Eosinophils # 0.3 K/mcL (0.0-0.6); Eosinophils % 5.2 %; Immature Granulocytes % 0.2 % (0-4); Lymphocytes # 1.5 K/mcL (0.6-4.6); Lymphocytes % 23.7 %; Mean Platelet Volume 9.9 fL (9.4-12.4); Monocytes # 0.7 K/mcL (0.0-1.3); Monocytes % 10.6 %; Neutrophils # 3.7 K/mcL (1.6-8.9); Platelet Count 202 K/mcL (140-400); Red Cell Distribution Width 13.3 % (11.5-14.5); Segmented Neutrophils % 59.6 %
[2021-12-27 04:49] LABS: Alanine Aminotransferase 10 Units/L (7-52); Albumin/Globulin Ratio 0.9 (1.1-2.2); Alkaline Phosphatase 65 Units/L (34-104); Aspartate Amino Transferase 18 Units/L (13-39); BUN/Creatinine Ratio 13 (6-26); Bilirubin,Total 0.7 mg/dL (0.3-1.0); Blood Urea Nitrogen 11 mg/dL (8-23); Calcium 8.6 mg/dL (8.6-10.3); Carbon Dioxide 28 mEq/L (23-29); Chloride 108 mEq/L (98-107); Globulin 3.2 g/dL (2.4-3.5); Glucose 96 mg/dL (70-105); Osmolality,Calculated 289 (280-300); Potassium 3.8 mEq/L (3.5-5.1); Sodium 140 mEq/L (136-145); Total Protein 6.2 g/dL (6.4-8.9); eGFR For African Americans > 60 (> 60); eGFR For Non-African Americans > 60 (> 60)
[2021-12-27] MEDS: Piperacillin/Tazobactam 3.375 GM in 0.9 % Sodium Chloride Mini Bag 100 ML IVPB SCH ×3 (04:54→21:44)
[2021-12-27] MEDS: Budesonide/Formoterol 160/4.5 1 PUFF INH IH SCH ×2 (07:22→20:03)
[2021-12-27] MEDS: Gabapentin 300 MG CAPSULE PO SCH ×2 (08:52→21:43)
[2021-12-27] MEDS: Metoprolol XL (24 HR) Succ 50 MG TAB.ER.24H PO SCH (08:52)
[2021-12-27] MEDS: DilTIAZem CD (24hr) 120 MG CAP.ER.24H PO SCH (08:52)
[2021-12-27] MEDS: Cholestyramine 4 GM POWD.PACK PO SCH ×2 (08:52→19:39)
[2021-12-27] MEDS: Fluticasone Propionate Nasal 50 MCG/SPRAY BOTTLE NS SCH (08:52)
[2021-12-27] MEDS ORDERED: *HR* Propofol 200 MG/20 ML VIAL IVP ONE ×2 (12:13→12:15)
[2021-12-27] MEDS ORDERED: *HR* FentaNYL (PF) 100 MCG/2 ML VIAL ONE (12:13)
[2021-12-27] MEDS ORDERED: *HR* Midazolam HCl 2 MG/2 ML VIAL ONE (12:13)
[2021-12-27] MEDS ORDERED: Lidocaine -MPF 2% 5 ML VIAL ONE (12:14)
[2021-12-27] MEDS ORDERED: Vancomycin 1,000 MG, Sodium Chloride IRRigation 1,000 ML IR ONE (13:00)
[2021-12-27] MEDS: *HR* Rivaroxaban 10 MG TABLET PO SCH (16:17)
[2021-12-27] MEDS: Vancomycin 1,750 MG/517.5 ML IV.SOLN IVPB SCH (19:40)
[2021-12-28 03:13] LABS: Basophils % 0.4 %; Eosinophils # 0.2 K/mcL (0.0-0.6); Eosinophils % 3.2 %; Hematocrit 41.6 % (37.5-50.1); Hemoglobin 13.1 g/dL (12.9-16.9); Immature Granulocytes % 0.3 % (0-4); Lymphocytes # 1.5 K/mcL (0.6-4.6); Lymphocytes % 22.1 %; Mean Corpuscular HGB Conc 31.5 g/dL (31.6-35.5); Mean Corpuscular Hemoglobin 31.8 pg (28.0-33.3); Mean Platelet Volume 9.8 fL (9.4-12.4); Monocytes # 0.7 K/mcL (0.0-1.3); Monocytes % 9.9 %; Neutrophils # 4.4 K/mcL (1.6-8.9); Platelet Count 205 K/mcL (140-400); Red Blood Count 4.12 M/mcL (4.19-5.50); Red Cell Distribution Width 13.5 % (11.5-14.5); Segmented Neutrophils % 64.1 %; White Blood Count 6.9 K/mcL (4.3-11.1)
[2021-12-28 03:20] LABS: Alanine Aminotransferase 10 Units/L (7-52); Albumin/Globulin Ratio 0.9 (1.1-2.2); Alkaline Phosphatase 64 Units/L (34-104); Aspartate Amino Transferase 16 Units/L (13-39); BUN/Creatinine Ratio 13 (6-26); Bilirubin,Total 0.6 mg/dL (0.3-1.0); Blood Urea Nitrogen 11 mg/dL (8-23); Calcium 8.6 mg/dL (8.6-10.3); Carbon Dioxide 28 mEq/L (23-29); Chloride 107 mEq/L (98-107); Globulin 3.4 g/dL (2.4-3.5); Glucose 124 mg/dL (70-105); Osmolality,Calculated 295 (280-300); Potassium 3.8 mEq/L (3.5-5.1); Sodium 142 mEq/L (136-145); Total Protein 6.4 g/dL (6.4-8.9); eGFR For African Americans > 60 (> 60); eGFR For Non-African Americans > 60 (> 60)
[2021-12-28] MEDS: Piperacillin/Tazobactam 3.375 GM in 0.9 % Sodium Chloride Mini Bag 100 ML IVPB SCH ×2 (04:21→11:32)
[2021-12-28] MEDS: Budesonide/Formoterol 160/4.5 1 PUFF INH IH SCH (07:42)
[2021-12-28] MEDS: Gabapentin 300 MG CAPSULE PO SCH (08:07)
[2021-12-28] MEDS: Metoprolol XL (24 HR) Succ 50 MG TAB.ER.24H PO SCH (08:07)
[2021-12-28] MEDS: DilTIAZem CD (24hr) 120 MG CAP.ER.24H PO SCH (08:07)
[2021-12-28] MEDS: Cholestyramine 4 GM POWD.PACK PO SCH (08:11)
[2021-12-28] MEDS: Fluticasone Propionate Nasal 50 MCG/SPRAY BOTTLE NS SCH (08:15)
[2021-12-28 15:04] VITALS: BP 107/64; PULSE 66; TEMP 98; O2SAT 96
[2021-12-28] MEDS: *HR* Rivaroxaban 10 MG TABLET PO SCH (16:17)
[2021-12-28] MEDS ORDERED: Doxycycline 100 MG CAPSULE PO SCH (21:00)
== END 2021-12-28 18:10 | disposition home or self-care (01) | DRG 908 ==
LOC: 3BNU → SUATTDRO 16:20
PROVIDERS: ADMIT Internal Medicine; ATTEND Nurse Practitioner